=== PATIENT | male | born 1935 | race Caucasian/White ===

== ENCOUNTER 2018-10-07 10:26 | Outpatient (CLI) | payer MEDICARE, OTHER ==
--- NOTE | 2018-10-07 11:06 | RAD ---
LUMBAR SPINE 3 VIEWS: HISTORY: Low back pain. FINDINGS: There are 5 lumbar-type vertebrae. Pedicles are intact. Compression of the T12 vertebral body results in loss of height by approximately 30%. Minimal retrop ulsion of the superior end plate. Disk space narrowing at the L3-4 level with gas-disk phenomenon. Minimal degenerative spondylolisthe sis at the L4-5 level. Osteophytosis throughout the vertebral bodies and facets. Calcification over the arterial structures. IMPRESSION: 1. Partial compression T12 vertebral body, age indeterminate. 2. Degenerative changes lumbar spine. 3. Atherosclerosis. POS: MANDO
== END 2018-10-07 10:27 | disposition home or self-care (01) ==
LOC: RAD-FRANK 10:26
PROVIDERS: ATTEND Nurse Practitioner Family
DX: M54.5 Low back pain (principal); M47.816 Spondylosis without myelopathy or radiculopathy, lumbar region; I70.0 Atherosclerosis of aorta
CPT/HCPCS: 72100

== ENCOUNTER 2019-05-23 12:16 | Inpatient (IN) | payer MEDICARE, OTHER ==
[2019-05-23] MEDS ORDERED: Diltiazem 125 MG/25 ML ONE ×2 (13:04→13:06)
--- NOTE | 2019-05-23 13:04 | RAD ---
EXAM: CHEST ONE VIEW HISTORY: Multiple falls, UTI symptoms. COMPARISON: 06/26/2010 FINDINGS: Cardiac silhouette is magnified by projection. The pulmonary vasculature is within normal limits. The lungs are clear. Chest is overall stable compared to prior study. IMPRESSION: No acute cardiopulmonary process.
[2019-05-23 13:23] LABS: #Eosinphils 0.1 thou/uL (0.0-0.7); #Lymphocytes 1.2 thou/uL (1.20-3.40); #Neutrophils 8.9 thou/uL (1.40-6.50); %Basophils 0.1 % (0.0-1.0); %Eosinophils 0.5 % (0.0-10.0); %Lymphocytes 10.5 % (21.0-51.0); %Monocytes 8.6 % (0.0-10.0); %Neutrophils 80.4 % (42.0-75.0); Hemoglobin 16.1 g/dL (14.0-18.0); Mean Corpuscular HGB CONC 34.8 g/dL (32.0-36.0); Mean Corpuscular Hemoglobin 32.8 pg (27.0-31.0); Mean Corpuscular Volume 94.3 fL (78.0-98.0); Mean Platelet Volume 7.6 fL (7.4-10.4); Platelet Count 246 thou/uL (130-400); RBC Distribution Width 11.8 % (11.5-14.5)
[2019-05-23 13:54] LABS: ALT (SGPT) 17 U/L (8-55); AST (SGOT) 41 U/L (5-34); Albumin 4.1 g/dL (3.4-4.8); Alkaline Phosphatase 61 U/L (40-150); Anion Gap 14 mmol/L (10-20); BUN (Urea Nitrogen) 10 mg/dL (8.4-25.7); Bilirubin, Total 1.7 mg/dL (0.2-1.2); CK (CPK) 515 U/L (30-200); Calc. Creatinine Clearance 0 mL/min (70-130); Calcium 9.8 mg/dL (7.8-10.44); Carbon Dioxide 22 mmol/L (23-31); Chloride 90 mmol/L (98-107); Estimated GFR-MDRD Greater than 90; Globulin 2.5 g/dL (2.4-3.5); Glucose 100 mg/dL (83-110); Protein, Total 6.6 g/dL (5.8-8.1); Sodium 122 mmol/L (136-145)
--- NOTE | 2019-05-23 14:31 | CT ---
CT OF BRAIN PERFORMED WITHOUT CONTRAST ENHANCEMENT: 05/23/19 HISTORY: Head injury. Multiple falls. COMPARISON: A 11/02/08 study. There is mild ventricular and sulcal prominence. There is decreased attenuation of the periventricula r white matter. There is no signs of intracerebral hemorrhage or extra-axial fluid collections. Mast oid air cells are clear. There is some mucosal change within the left maxillary sinus. IMPRESSION: No acute intracranial abnormalities. POS: OFF
[2019-05-23 14:59] LABS: Bilirubin Negative (Negative); Blood, Urine Negative (Negative); Clarity Clear (Clear); Glucose, Urine (Dipstick) Normal (Negative); Leukocyte Negative Leu/uL (Negative); Nitrite Negative (Negative); Protein, Urine (Dipstick) Negative (Neg-Trace); Urobilinogen Normal mg/dL (Less than 2)
--- NOTE | 2019-05-23 15:44 | HP ---
PRIMARY CARE PHYSICIAN: Dorothy Loya, family nurse practitioner. REASON FOR ADMISSION: Hyponatremia, frequent fall. HISTORY OF PRESENT ILLNESS: An 83-year-old male who has underlying history of atrial fibrillation. The patient is following Dr. Apollo Cooper. For last 3 to 4 days, the patient had frequent fall. Paramedics have to go his home for help. Couple of times, the patient refused to go to emergency room, but today, Paramedics brought him to emergency room for evaluation. The patient reports that his left knee giving away whenever he tries to walk and he fell. He did not have any injury. He was not feeling any palpitation, chest pain, or shortness of breath. The patient also reports that he has difficulty voiding for last 1 week. He also noticed that his scrotum was erythematous, but he denies any tenderness, fever, or chills. He denies any lower extremity edema, orthopnea, or PND. For last couple of days, the patient was using his 's walker for ambulation. The patient also reports that he saw his primary care physician 2 days ago and his blood pressure medication was adjusted. The patient has generalized weakness. He denies any constipation, diarrhea, melena, or hematochezia. REVIEW OF SYSTEMS: CONSTITUTIONAL: Negative for weight loss or gain, ability to conduct usual activities. SKIN: Negative for rash, itching. EYES: Negative for double vision, pain. ENT/MOUTH: Negative for nose bleeding, neck stiffness, pain, tenderness. CARDIOVASCULAR: Negative for palpitations, dyspnea on exertion, orthopnea. RESPIRATORY: Negative for shortness of breath, wheezing, cough, hemoptysis, fever or night sweats. GASTROINTESTINAL: Negative for poor appetite, abdominal pain, heartburn, nausea , vomiting, constipation, or diarrhea. GENITOURINARY: Negative for urgency, frequency, dysuria, nocturia. MUSCULOSKELETAL: Negative for pain, swelling. NEUROLOGIC/PSYCHIATRIC: Negative for anxiety, depression. ALLERGY/IMMUNOLOGIC: Negative for skin rash, bleeding tendency. Please see my HPI for pertinent positives and negatives. All other review of systems reviewed and negative except as mentioned in HPI. PAST MEDICAL HISTORY: Atrial fibrillation and hypertension. PAST SURGICAL HISTORY: The patient is not able to provide any details of surgical history. PAST PSYCHIATRIC HISTORY: Reviewed and negative. SOCIAL HISTORY: The patient is . Lives at home with his . No history of tobacco, alcohol, or illicit drug abuse. FAMILY HISTORY: No strong family history of premature coronary artery disease, stroke, or cancer. ALLERGIES: NO KNOWN DRUG ALLERGIES. CURRENT HOME MEDICATIONS: The patient did not bring his home medication with him at this point and he is not able to tell me the name of medication, so unable to review at this point. EMERGENCY ROOM COURSE: The patient was given 10 mg Cardizem bolus for atrial fibrillation with RVR and subsequently, his heart rate was under control. He was also given IV fluid. PHYSICAL EXAMINATION: VITAL SIGNS: On arrival, blood pressure 167/114, pulse 105 and irregular, respiratory rate 17, temperature 98.6, saturations 95% on room air. Weight 90.27 kg. GENERAL: The patient is currently alert and awake, no obvious acute distress. HEENT: Head; normocephalic, atraumatic. Eyes; pupils round, reactive to light. Extraocular muscle intact. ENT; oropharynx within normal limit. Moist mucous membranes. No oral lesion. No pharyngeal erythema. No exudate. NECK: Supple. No JVD. No thyromegaly. No carotid bruit. LUNGS: Clear to auscultation without any rhonchi or rales. CARDIAC: S1 and S2. Irregularly irregular. No murmur elicited. No gallop. No rub. ABDOMEN: Soft and benign without any tenderness. EXTREMITIES: Chronic skin changes noted on both lower extremity, no edema. Good distal pulsation. SKIN: No skin rash other than chronic skin changes over both lower extremities. NEUROLOGIC: Grossly nonfocal examination. SIGNIFICANT LABORATORY DATA: CBC; WBC 11.0, hemoglobin 16.1, and platelet 246. BMP; sodium 122, potassium 4.0, chloride 90, carbon dioxide 22, BUN 10, creatinine 0.64, glucose 100, calcium 9.8. LFT; AST 41, ALT 17, alkaline phosphatase 61, albumin 4.1. CK 515. Troponin I 0.025. BNP 303. EKG showing atrial fibrillation with RVR. CT brain negative for any acute intracranial process. Chest x-ray normal without any acute cardiopulmonary process. ASSESSMENT AND PLAN: 1. Hyponatremia. We will check urinalysis, urine sodium, creatinine, cortisol, TSH, osmolality of urine and serum for further evaluation. 2. Frequent fall. The patient will need PT, OT, and case technician consult for placement evaluation. 3. Rhabdomyolysis related with frequent fall. We will repeat CK level tomorrow. 4. Elevated BNP, suspecting diastolic heart failure. We will check echocardiography. 5. Atrial fibrillation with rapid ventricular response, currently controlled after Cardizem bolus. We will continue with Cardizem p.o. and we will verify his home medication and resume selected medication. The patient will follow up with Dr. Apollo Cooper after discharge. We will obtain echocardiography. 6. Hypertension. Once we verify the patient's blood pressure medication, we will resume while in hospital. If needed, we will add lisinopril and metoprolol. 7. Deep venous thrombosis prophylaxis, Lovenox 40 mg subcu daily. GI prophylaxis, Pepcid 20 mg p.o. b.i.d. CODE STATUS: The patient is full code. The patient's is surrogate decision maker. DISPOSITION PLAN: Based on clinical course, we are expecting the patient's stay in the hospital more than 2 midnights. Plan of care discussed with the patient and his in the emergency room. Job ID: [id number] [email or web address]
[2019-05-23] MEDS ORDERED: Ondansetron ODT 4 MG TAB PO PRN (18:58)
[2019-05-23] MEDS ORDERED: HYDROcodone/Acetaminophen 5/325 mg Tablet PO PRN (18:58)
[2019-05-23] MEDS ORDERED: Ondansetron PF 4 MG/2 ML Vial IVP PRN (18:58)
[2019-05-23] MEDS ORDERED: Sodium Chloride 0.65% Nasal 44 ML BOT EA NARE PRN (18:58)
[2019-05-23] MEDS ORDERED: Artificial Tears 18 DROP/0.9 ML EA EYE PRN (18:58)
[2019-05-23] MEDS ORDERED: Loratadine 10 MG TAB PO PRN (18:58)
[2019-05-23] MEDS ORDERED: Senokot S 8.6-50 MG TAB PO PRN (18:58)
[2019-05-23] MEDS ORDERED: Bisacodyl 10 MG SUPP PR PRN (18:58)
[2019-05-23] MEDS ORDERED: Cepastat Lozenges 1 LOZ PO PRN (18:58)
[2019-05-23] MEDS ORDERED: Acetaminophen 325 MG TAB PO PRN (18:58)
[2019-05-23] MEDS ORDERED: Calcium Carbonate 500 MG ChewTAB PO PRN (18:58)
[2019-05-23] MEDS ORDERED: Diabetic Tussin 200 MG/10 ML UDCUP PO PRN (18:58)
[2019-05-23] MEDS ORDERED: Loperamide HCl 2 MG CAP PO PRN (18:58)
[2019-05-23] MEDS ORDERED: hydrALAZINE 20 MG/ML VIAL SLOW IVP PRN (18:58)
[2019-05-23] MEDS ORDERED: Dextrose 5 % And 0.9 % NaCl 1,000 ML IV SCH (19:00)
[2019-05-23] MEDS: Famotidine 20 MG TAB PO SCH (20:53)
[2019-05-23 21:07] LABS: Bacteria/HPF None Seen HPF (None Seen); Bilirubin Negative (Negative); Blood, Urine Negative (Negative); Clarity Clear (Clear); Glucose, Urine (Dipstick) Normal (Negative); Leukocyte Negative Leu/uL (Negative); Nitrite Negative (Negative); Protein, Urine (Dipstick) Negative (Neg-Trace); RBC/HPF 0-3 HPF (0-3); Squamous Epithelial None Seen HPF (0-3); Urobilinogen Normal mg/dL (Less than 2); WBC/HPF 0-3 HPF (0-3)
[2019-05-23 21:47] LABS: Creatinine, Urine 52.69 mg/dL (63-166)
[2019-05-23 22:58] VITALS: BMI 26.0
[2019-05-24 05:29] LABS: #Eosinphils 0.1 thou/uL (0.0-0.7); #Lymphocytes 1.5 thou/uL (1.20-3.40); #Monocytes 1.1 thou/uL (0.11-0.59); %Basophils 0.2 % (0.0-1.0); %Eosinophils 1.2 % (0.0-10.0); %Lymphocytes 14.2 % (21.0-51.0); %Monocytes 10.3 % (0.0-10.0); %Neutrophils 74.1 % (42.0-75.0); Mean Corpuscular Hemoglobin 32.1 pg (27.0-31.0); Mean Corpuscular Volume 94.2 fL (78.0-98.0); Mean Platelet Volume 7.7 fL (7.4-10.4); Platelet Count 237 thou/uL (130-400); Red Blood Cell (RBC) Count 4.98 mill/uL (4.70-6.10); White Blood Cell (WBC) Count 10.8 thou/uL (4.8-10.8)
[2019-05-24 06:02] LABS: Anion Gap 13 mmol/L (10-20); BUN (Urea Nitrogen) 6 mg/dL (8.4-25.7); CK (CPK) 428 U/L (30-200); Calc. Creatinine Clearance 117 mL/min (70-130); Calcium 9.2 mg/dL (7.8-10.44); Carbon Dioxide 22 mmol/L (23-31); Chloride 94 mmol/L (98-107); Estimated GFR-MDRD Greater than 90; Glucose 116 mg/dL (83-110); Potassium 3.3 mmol/L (3.5-5.1); Sodium 126 mmol/L (136-145)
[2019-05-24] MEDS ORDERED: Warfarin Sodium 2.5 MG TAB PO SCH ×2 (08:00→18:30)
[2019-05-24 08:50] LABS: INR-International Normal Ratio 2.8; Prothrombin Time 29.5 SEC (12.0-14.7)
[2019-05-24] MEDS ORDERED: Aspirin 325 MG TAB PO SCH (09:00)
[2019-05-24] MEDS ORDERED: Enoxaparin Sodium 40 MG/0.4 ML SYRINGE SC SCH (09:00)
[2019-05-24] MEDS: Famotidine 20 MG TAB PO SCH ×2 (09:55→21:32)
[2019-05-24] MEDS: Lisinopril 10 MG TAB PO SCH ×2 (09:55→21:32)
[2019-05-24] MEDS: Digoxin 0.125 MG TAB PO SCH (09:56)
[2019-05-24] MEDS: Carvedilol 25 MG TAB PO SCH ×2 (09:56→21:32)
--- NOTE | 2019-05-24 11:26 | PDOC.HOSPP ---
- Subjective Encounter Date: 05/24/19 Encounter Time: 07:30 Subjective: Patient seen and examined. No new complaints. No overnight events - Objective Vital Signs & Weight: Vital Signs (12 hours) Temp Pulse Resp BP Pulse Ox 05/24/19 09:56 100 05/24/19 07:30 93 L 05/24/19 07:28 97.9 F 100 18 161/95 H 94 L 05/24/19 04:00 97.4 F L 101 H 18 137/81 96 Weight Weight 192 lb Result Diagrams: 05/24/19 05:09 05/24/19 05:09 EKG Reviewed by me: Yes ROS - Review of Systems Constitutional: denies: fever, chills, sweats, weakness, malaise, other Eyes: denies: pain, vision change, conjunctivae inflammation, eyelid inflammation, redness, other ENT: denies: ear pain, ear discharge, nose pain, nose discharge, nose congestion , mouth pain, mouth swelling, throat pain, throat swelling, other Respiratory: denies: cough, dry, shortness of breath, hemoptysis, SOB with excertion, pleuritic pain, sputum, wheezing, other Cardiovascular: denies: chest pain, palpitations, orthopnea, paroxysmal noc. dyspnea, edema, light headedness, other Gastrointestinal: denies: nausea, vomitting, abdominal pain, diarrhea, constipation, melena, hematochezia, other Genitourinary: denies: dysuria, frequency, incontinence, hematuria, retention, other Musculoskeletal: denies: neck pain, shoulder pain, arm pain, back pain, hand pain, leg pain, foot pain, other Skin: reports: rash (scotral rash, mild itching). denies: lesions, le, bruising, other - Medication Medications: Active Medications Generic Name Dose Route Start Last Admin Trade Name Freq PRN Reason Stop Dose Admin Carvedilol 25 mg 05/24/19 09:00 05/24/19 09:56 Coreg PO 25 mg BID OZIEL Administration Digoxin 0.125 mg 05/24/19 09:00 05/24/19 09:56 Lanoxin PO 0.125 mg DAILY OZIEL Administration Famotidine 20 mg 05/23/19 21:00 05/24/19 09:55 Pepcid PO 20 mg BID OZIEL Administration Lisinopril 10 mg 05/24/19 09:00 05/24/19 09:55 Zestril PO 10 mg BID OZIEL Administration - Exam NAD, awake alert Eye: PERRL, anicteric sclera ENT: normocephalic atraumatic, no oropharyngeal lesions Neck: supple, symmetric, no JVD, no thyromegaly Heart: no murmur, no gallops, irregular Respiratory: CTAB, no wheezes, no rales, no ronchi Gastrointestinal: soft, non-tender, non-distended, normal bowel sounds Extremities: no cyanosis, no clubbing, no edema Skin: normal turgor Neurological: CN's grossly intact, normal sensation to touch, no focal deficits Musculoskeletal: normal tone, normal strength Psychiatric: normal affect, normal behavior, oriented to place Hosp A/P (1) Hyponatremia Code(s): E87.1 - HYPO-OSMOLALITY AND HYPONATREMIA Status: Acute Plan: due to siadh (2) Hypokalemia Code(s): E87.6 - HYPOKALEMIA Status: Acute (3) Frequent falls Code(s): R29.6 - REPEATED FALLS Status: Acute (4) Rhabdomyolysis Code(s): M62.82 - RHABDOMYOLYSIS Status: Acute Plan: due to falls (5) Chronic anticoagulation Code(s): Z79.01 - 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
[2019-05-24 15:57] LABS: Hemoglobin 15.7 g/dL (14.0-18.0); Platelet Count 245 thou/uL (130-400)
[2019-05-24] MEDS: traZODone HCl 150 MG TAB PO SCH (21:32)
[2019-05-24] MEDS: Nystatin Powder 15 GM BOT TOP SCH (21:33)
[2019-05-25 05:34] LABS: INR-International Normal Ratio 2.8; Prothrombin Time 29.3 SEC (12.0-14.7)
[2019-05-25 06:06] LABS: BUN (Urea Nitrogen) 9 mg/dL (8.4-25.7); Calc. Creatinine Clearance 111 mL/min (70-130); Carbon Dioxide 18 mmol/L (23-31); Estimated GFR-MDRD Greater than 90; Glucose 90 mg/dL (83-110)
[2019-05-25 06:26] LABS: Calcium 7.5 mg/dL (7.8-10.44); Chloride 93 mmol/L (98-107); Potassium 3.7 mmol/L (3.5-5.1); Sodium 121 mmol/L (136-145)
[2019-05-25 06:46] LABS: Anion Gap 14 mmol/L (10-20)
[2019-05-25] MEDS: Digoxin 0.125 MG TAB PO SCH (09:27)
[2019-05-25] MEDS: Aspirin 81 mg Enteric Coated Tablet PO SCH (09:28)
[2019-05-25] MEDS: Carvedilol 25 MG TAB PO SCH ×2 (09:28→21:04)
[2019-05-25] MEDS: Famotidine 20 MG TAB PO SCH ×2 (09:29→21:05)
[2019-05-25] MEDS: Lisinopril 10 MG TAB PO SCH ×2 (09:32→21:05)
[2019-05-25] MEDS: Nystatin Powder 15 GM BOT TOP SCH ×2 (09:32→21:06)
--- NOTE | 2019-05-25 17:33 | PDOC.HOSPP ---
- Subjective Encounter Date: 05/25/19 Encounter Time: 10:30 Subjective: pt up in bed no complains - Objective Vital Signs & Weight: Vital Signs (12 hours) Temp Pulse Pulse Pulse Resp BP BP 05/25/19 16:00 97.7 F 105 H 18 05/25/19 12:00 98.2 F 90 18 05/25/19 10:41 96 87 149/76 H 05/25/19 09:32 169/86 H 05/25/19 09:27 67 05/25/19 08:00 98.8 F 81 16 BP BP Pulse Ox 05/25/19 16:00 163/95 H 98 05/25/19 12:00 129/74 96 05/25/19 10:41 152/73 H 05/25/19 09:32 05/25/19 09:27 05/25/19 08:00 169/86 H 96 Weight Weight 192 lb Result Diagrams: 05/24/19 15:50 05/25/19 05:03 ROS - Review of Systems Cardiovascular: denies: chest pain, palpitations, orthopnea, paroxysmal noc. dyspnea, edema, light headedness, other Genitourinary: denies: dysuria, frequency, incontinence, hematuria, retention, other - Medication Medications: Active Medications Generic Name Dose Route Start Last Admin Trade Name Chaunceyq PRN Reason Stop Dose Admin Aspirin 81 mg 05/25/19 09:00 05/25/19 09:28 Ecotrin PO 81 mg DAILY OZIEL Administration Carvedilol 25 mg 05/24/19 09:00 05/25/19 09:28 Coreg PO 25 mg BID OZIEL Administration Digoxin 0.125 mg 05/24/19 09:00 05/25/19 09:27 Lanoxin PO 0.125 mg DAILY OZIEL Administration Famotidine 20 mg 05/23/19 21:00 05/25/19 09:29 Pepcid PO 20 mg BID OZIEL Administration Lisinopril 10 mg 05/24/19 09:00 05/25/19 09:32 Zestril PO 10 mg BID OZIEL Administration Nystatin 0 gm 05/24/19 21:00 05/25/19 09:32 Mycostatin Powder TOP 1 applic BID OZIEL Administration Trazodone HCl 75 mg 05/24/19 21:00 05/24/19 21:32 Desyrel PO 75 mg HS OZIEL Administration - Exam Neck: negative: supple, symmetric, no JVD, no thyromegaly, no lymphadenopathy, no carotid bruit, JVD Heart: negative: RRR, no murmur, no gallops, no rubs, normal peripheral pulses, irregular, diminshed peripheral pulses, murmur present, II/IV, III/IV Respiratory: negative: CTAB, no wheezes, no rales, no ronchi, normal chest expansion, no tachypnea, normal percussion, rales, rhonchi, tachypneic, wheezes Hosp A/P (1) Frequent falls Code(s): R29.6 - REPEATED FALLS Status: Acute (2) Hyponatremia Code(s): E87.1 - HYPO-OSMOLALITY AND HYPONATREMIA Status: Acute (3) Rhabdomyolysis Code(s): M62.82 - RHABDOMYOLYSIS Status: Acute (4) Chronic atrial fibrillation with RVR Code(s): I48.2 - CHRONIC ATRIAL FIBRILLATION Status: Chronic - Plan pt's heart rate on admission was 120's afib. He is now having pauses. will get cardio to see him. He has been falling at home. He is on AC for afib. 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
[2019-05-25] MEDS: traZODone HCl 150 MG TAB PO SCH (21:07)
[2019-05-26] MEDS ORDERED: Sodium Chloride 0.9% 10 ML ONE (07:47)
[2019-05-26 09:04] LABS: Digoxin 0.25 ng/mL (0.8-2.0)
[2019-05-26 09:06] LABS: Anion Gap 10 mmol/L (10-20); BUN (Urea Nitrogen) 9 mg/dL (8.4-25.7); Calc. Creatinine Clearance 97 mL/min (70-130); Calcium 9.2 mg/dL (7.8-10.44); Carbon Dioxide 29 mmol/L (23-31); Chloride 93 mmol/L (98-107); Estimated GFR-MDRD Greater than 90; Glucose 84 mg/dL (83-110); Potassium 3.7 mmol/L (3.5-5.1); Sodium 128 mmol/L (136-145)
[2019-05-26] MEDS: Lisinopril 10 MG TAB PO SCH ×2 (09:28→19:44)
[2019-05-26] MEDS: Aspirin 81 mg Enteric Coated Tablet PO SCH (09:28)
[2019-05-26] MEDS: Digoxin 0.125 MG TAB PO SCH (09:28)
[2019-05-26] MEDS: Famotidine 20 MG TAB PO SCH ×2 (09:28→19:51)
[2019-05-26] MEDS: Carvedilol 25 MG TAB PO SCH ×2 (09:28→19:48)
[2019-05-26] MEDS: Nystatin Powder 15 GM BOT TOP SCH ×2 (09:31→22:37)
[2019-05-26 16:15] LABS: Hemoglobin 15.1 g/dL (14.0-18.0); Platelet Count 234 thou/uL (130-400)
[2019-05-26] MEDS ORDERED: Warfarin Sodium 5 MG TAB PO SCH (17:00)
--- NOTE | 2019-05-26 18:30 | CON ---
DATE OF CONSULTATION: 05/26/2019 INDICATION FOR CONSULTATION: An 83-year-old gentleman with probable short episodes of syncope with atrial fibrillation and pauses, who asked to see him due to the regular heart rate. HISTORY OF PRESENT ILLNESS: This very unfortunate 83-year-old gentleman, who lives at home. Has had a long history of atrial fibrillation, has been followed by Dr. Apollo Cooper in [facility]. He in the last several months, started having occasional falls. He has fallen 3 times about a year ago. He did have his medications adjusted. He was taking Coreg 25 mg once a day and this was increased to twice a day, and he had complained of some lightheadedness and dizziness. He does not have any significant etiology of why he falls on each episode. He says if he was standing, then suddenly realized that he was falling, but was unable to stop himself. It does not sound as if his legs are giving way, but sounds like he may be having short episodes of pauses and having syncope or presyncopal episodes. He has not had any becca syncope that he is aware of. He may be having short episodes and then recovered his heart rate. He does have episodes since being on telemetry with heart rates in the 40s and 50s at night. He has had some episodes of pauses to 2-1/2 to 3-second pauses, but apparently was asymptomatic since he was sleeping. He has had no significant pauses during the daytime. His heart rate usually have been in the 60s and 70s with his atrial fibrillation. Since being here when he arrived, he was in atrial fibrillation with rapid ventricular response with a heart rate in the 120s. When he arrived to the emergency room, he was given IV diltiazem. The heart rate has been improved. He has been placed back on his home medications, which included the Coreg 25 mg twice a day. Also, he has been given digoxin 0.125 mg a day, and heart rate is under good control, but at times it may be too slow. Otherwise, he denies any chest pain or previous cardiac history. He said he did undergo a cardiac catheterization several years ago in [facility] by Dr. Mccabe. At which time, he was told that he only had minimal if any coronary artery disease. He has had no chest pain or shortness of breath otherwise. PAST MEDICAL HISTORY: Significant for cardiac catheterization in 1995. He has also had the history of atrial fibrillation and hypertension. SOCIAL HISTORY: He is . He lives at home. He denies any significant alcohol or tobacco abuse. FAMILY HISTORY: Noncontributory. ALLERGIES: NONE. MEDICATIONS: From a cardiac standpoint include, 1. Coumadin. 2. Aspirin. 3. Coreg 25 mg b.i.d. 4. Digoxin 0.125 mg a day. 5. Lisinopril 10 mg b.i.d. REVIEW OF SYSTEMS: A 12-point review of systems unremarkable except he does have some discoloration in the lower extremities and has been complaining of some right lower extremity claudication from the knee down to the foot with some weakness and fatigue in the legs. Otherwise, 12-point review of systems unremarkable for what was noted in the history of present illness. PHYSICAL EXAMINATION: GENERAL: An elderly, very pleasant gentleman, who is awake and alert. VITAL SIGNS: Blood pressure is 114/65, increased up to 136/67, heart rate is in the 50s to 60s and shows atrial fibrillation, respiratory rate 16. He is afebrile. HEENT: Head to be normocephalic and atraumatic. Carotid pulses are present. There were no significant bruits noted. CHEST: Clear to auscultation without rales, rhonchi, or wheezing. CARDIOVASCULAR: An irregularly irregular rhythm. He has a soft systolic murmur at the lower sternal border and also at the apex. ABDOMEN: Soft and nontender. Positive bowel sounds are present. EXTREMITIES: No clubbing or cyanosis. He does have some discoloration of lower extremities. I could not palpate pedal pulses on the right lower extremity, but popliteal pulses are present. NEUROLOGIC: The patient appears to be fully intact. SKIN: Warm and dry. LABORATORY DATA: Hemoglobin of 15.7, WBC of 10.3, platelet count of 245,000. Sodium is low at 128, BUN is 9 with a creatinine 0.72, potassium is 3.7. His BNP is 303. Cardiac enzymes are negative. His INR is 2.8. Digoxin level 0.25. DIAGNOSTIC DATA: EKG shows atrial fibrillation with well-controlled response, and as noted above, did have some pauses while sleeping up to 3 seconds. Otherwise, no ischemic changes were noted. His echocardiogram showed an ejection fraction of 45% to 50% with moderate mitral and aortic valve regurgitation and chronic atrial fibrillation. IMPRESSION: 1. An elderly gentleman most likely with short episodes of syncope associated with bradycardia most likely, but these have not been documented during the daytime. It could be hypotension. At this time, I will decrease the Coreg down to 12.5 mg b.i.d. We will continue to observe him. He has had no further episodes within the next 24 to 48 hours. He may be a candidate to have an implantable loop recorder inserted just to continue to monitor him. Otherwise, if he has any significant pauses or any other abnormalities while here, he may need to undergo pacemaker insertion. 2. Atrial fibrillation. The rate is under good control. He is on Coumadin as necessary for the patient to be on Coumadin and aspirin. I will discontinue the aspirin. His INR is sufficient at 2.8, and also we will control the heart rate with digoxin also at 0.25 and hope for the Coreg at 12.5 mg from his previous 25 b.i.d. will be enough to control the heart rate also. He has been complaining of some dizziness and lightheaded since the dose was increased recently or within the last year supposedly. 3. Hyponatremia. This will be dealt with by the primary care service. This may be due to uncertain etiology. This is being evaluated at this time. 4. History of rhabdomyolysis after he has had frequent falls. 5. History of hypertension. This is under very good control at this time. We will continue to follow the patient. 6. Peripheral vascular disease. He has decreased pulses on the right foot and may need further evaluation by Doppler, but at this time, it is not an urgent problem for this gentleman. We will continue to monitor him for his arrhythmias. Job ID: [id number]
[2019-05-26] MEDS: traZODone HCl 150 MG TAB PO SCH (19:51)
[2019-05-27 05:42] LABS: Prothrombin Time 22.4 SEC (12.0-14.7)
--- NOTE | 2019-05-27 06:48 | PDOC.HOSPP ---
- Subjective Encounter Date: 05/26/19 Encounter Time: 10:15 Subjective: pt up in bed no complains - Objective Vital Signs & Weight: Vital Signs (12 hours) Temp Pulse Resp BP BP Pulse Ox 05/27/19 03:58 97.8 F 78 16 138/78 93 L 05/27/19 00:00 98.1 F 92 16 132/85 98 05/26/19 20:00 98.8 F 72 18 180/82 H 94 L 05/26/19 19:44 180/82 H Weight Weight 188 lb 3 oz I&O: 05/25/19 05/26/19 05/27/19 06:59 06:59 06:59 Intake Total 2400 970 Output Total 3975 1150 Balance -1575 -180 Result Diagrams: 05/26/19 16:07 05/27/19 07:19 ROS - Review of Systems Cardiovascular: denies: chest pain, palpitations, orthopnea, paroxysmal noc. dyspnea, edema, light headedness, other Gastrointestinal: denies: nausea, vomitting, abdominal pain, diarrhea, constipation, melena, hematochezia, other Genitourinary: denies: dysuria, frequency, incontinence, hematuria, retention, other - Medication Medications: Active Medications Generic Name Dose Route Start Last Admin Trade Name Freq PRN Reason Stop Dose Admin Carvedilol 12.5 mg 05/26/19 21:00 05/26/19 19:48 Coreg PO 12.5 mg BID OZIEL Administration Digoxin 0.125 mg 05/24/19 09:00 05/26/19 09:28 Lanoxin PO 0.125 mg DAILY OZIEL Administration Famotidine 20 mg 05/23/19 21:00 05/26/19 19:51 Pepcid PO 20 mg BID OZIEL Administration Lisinopril 10 mg 05/24/19 09:00 05/26/19 19:44 Zestril PO 10 mg BID OZIEL Administration Nystatin 0 gm 05/24/19 21:00 05/26/19 22:37 Mycostatin Powder TOP 1 applic BID OZIEL Administration Trazodone HCl 75 mg 05/24/19 21:00 05/26/19 19:51 Desyrel PO 75 mg HS OZIEL Administration - Exam Neck: negative: supple, symmetric, no JVD, no thyromegaly, no lymphadenopathy, no carotid bruit, JVD Heart: negative: RRR, no murmur, no gallops, no rubs, normal peripheral pulses, irregular, diminshed peripheral pulses, murmur present, II/IV, III/IV Respiratory: negative: CTAB, no wheezes, no rales, no ronchi, normal chest expansion, no tachypnea, normal percussion, rales, rhonchi, tachypneic, wheezes Hosp A/P (1) Frequent falls Code(s): R29.6 - REPEATED FALLS Status: Acute (2) Hyponatremia Code(s): E87.1 - HYPO-OSMOLALITY AND HYPONATREMIA Status: Acute (3) Rhabdomyolysis Code(s): M62.82 - RHABDOMYOLYSIS Status: Acute (4) Chronic atrial fibrillation with RVR Code(s): I48.2 - CHRONIC ATRIAL FIBRILLATION Status: Chronic - Plan pt's heart rate on admission was 120's afib. He is now having pauses. will get cardio to see him. He has been falling at home. He is on AC for afib. 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 05/26 pt doing well, cardio has recommended to lower the coreg and continue dig. if he has no more episode of pauses will discharge to rehab. His na has improved.
[2019-05-27 08:10] LABS: Anion Gap 15 mmol/L (10-20); BUN (Urea Nitrogen) 11 mg/dL (8.4-25.7); Calc. Creatinine Clearance 93 mL/min (70-130); Calcium 9.5 mg/dL (7.8-10.44); Carbon Dioxide 24 mmol/L (23-31); Chloride 96 mmol/L (98-107); Estimated GFR-MDRD Greater than 90; Glucose 89 mg/dL (83-110); Potassium 3.8 mmol/L (3.5-5.1); Sodium 131 mmol/L (136-145)
[2019-05-27] MEDS ORDERED: Warfarin Sodium 2.5 MG TAB PO SCH (09:00)
[2019-05-27] MEDS: Digoxin 0.125 MG TAB PO SCH (09:13)
[2019-05-27] MEDS: Carvedilol 25 MG TAB PO SCH ×2 (09:13→20:48)
[2019-05-27] MEDS: Famotidine 20 MG TAB PO SCH ×2 (09:14→20:50)
[2019-05-27] MEDS: Lisinopril 10 MG TAB PO SCH ×2 (09:14→20:51)
[2019-05-27] MEDS: Nystatin Powder 15 GM BOT TOP SCH ×2 (09:15→20:51)
--- NOTE | 2019-05-27 12:02 | PDOC.CTH ---
Cardiology Progress Note - Subjective The pt seen and examined. No overnight events. No cardiac complaints. - Objective Vital Signs Temp Pulse Resp BP BP Pulse Ox 05/27/19 11:27 97.6 F 77 17 116/63 93 L 05/27/19 09:13 113 H 05/27/19 07:56 97.9 F 96 17 139/87 97 05/27/19 03:58 97.8 F 78 16 138/78 93 L 05/27/19 00:00 98.1 F 92 16 132/85 98 Weight 188 lb 3 oz 05/26/19 05/27/19 05/28/19 06:59 06:59 06:59 Intake Total 2400 2245 Output Total 3975 2050 Balance -1575 195 - Physical Examination General/Neuro: alert & oriented x3 Neck: no JVD present Lungs: CTA Heart: other: (irregular) Abdomen: soft Extremities: other: (No edema) - Telemetry Telemetry Rhythm: Afib - Labs Result Diagrams: 05/26/19 16:07 05/27/19 07:19 Troponin/CKMB Troponin I 0.027 ng/mL (< 0.028) 05/23/19 13:11 - Assessment/Plan 1. hx of frequent falls possible 2/2 syncopal episodes - Tele record has not shown any arrhythmias or pauses. Will d/c to rehab with 7-day EVR and the pt will f/u with Dr Cooper for further tx. 2. Chronic afib - well controlled hr; On Coreg and Coumadin 3. HTN - well controlled; 4. PVD to RLE - cont. to monitor 5. Hyponatremia - sightly improving. 6. Rhabdomyolysis MAR reviewed * Echo on 05/24/2019 with ER 45-50%, mod dilated LA, mod MR and AR, and mild TR * Will d/c to rehab with 7-day EVR and the pt will f/u with Dr Cooper for further tx. Pt. seen and eval. by me.I agree with the A/P by the DENTAL LABORATORY TECHNICIAN. A 7 day monitor has beed applied. This should monitor him in rehab. Should he have anysignificant events then a pacemaker may be indicated. If ot, then he will f/u with Dr. Cooper for possible implantable loop recorder. Chest clear. Irreg. rhythm. Review of Systems - Review of Systems Constitutional: reports: no symptoms reported EENTM: reports: no symptoms reported Respiratory: reports: no symptoms reported Cardiac (ROS): reports: no symptoms reported ABD/GI: reports: no symptoms reported : reports: no symptoms reported Musculoskeletal: reports: no symptoms reported
--- NOTE | 2019-05-27 19:41 | PDOC.HOSPP ---
- Subjective Encounter Date: 05/27/19 Encounter Time: 11:15 Subjective: pt up in bed no complains - Objective Vital Signs & Weight: Vital Signs (12 hours) Temp Pulse Pulse Pulse Resp BP BP 05/27/19 16:15 97.6 F 80 17 05/27/19 11:27 97.6 F 77 17 05/27/19 09:50 93 68 133/75 106/57 L 05/27/19 09:13 113 H 05/27/19 07:56 97.9 F 96 17 BP BP Pulse Ox 05/27/19 16:15 167/89 H 96 05/27/19 11:27 116/63 93 L 05/27/19 09:50 05/27/19 09:13 05/27/19 07:56 139/87 97 Weight Weight 188 lb 3 oz I&O: 05/26/19 05/27/19 05/28/19 06:59 06:59 06:59 Intake Total 2400 2245 600 Output Total 3975 2050 425 Balance -1575 195 175 Result Diagrams: 05/26/19 16:07 05/27/19 07:19 ROS - Review of Systems Cardiovascular: denies: chest pain, palpitations, orthopnea, paroxysmal noc. dyspnea, edema, light headedness, other Gastrointestinal: denies: nausea, vomitting, abdominal pain, diarrhea, constipation, melena, hematochezia, other - Medication Medications: Active Medications Generic Name Dose Route Start Last Admin Trade Name Freq PRN Reason Stop Dose Admin Carvedilol 12.5 mg 05/26/19 21:00 05/27/19 09:13 Coreg PO 12.5 mg BID OZIEL Administration Digoxin 0.125 mg 05/24/19 09:00 05/27/19 09:13 Lanoxin PO 0.125 mg DAILY OZIEL Administration Famotidine 20 mg 05/23/19 21:00 05/27/19 09:14 Pepcid PO 20 mg BID OZIEL Administration Lisinopril 10 mg 05/24/19 09:00 05/27/19 09:14 Zestril PO 10 mg BID OZIEL Administration Nystatin 0 gm 05/24/19 21:00 05/27/19 09:15 Mycostatin Powder TOP 1 applic BID OZIEL Administration Trazodone HCl 75 mg 05/24/19 21:00 05/26/19 19:51 Desyrel PO 75 mg HS OZIEL Administration Warfarin Sodium 2.5 mg 05/27/19 09:00 05/27/19 09:17 Coumadin PO 2.5 mg TTHSA@0900 OZIEL Administration - Exam ENT: negative: normocephalic atraumatic, no oropharyngeal lesions, moist mucosa , dry oral mucosa Neck: negative: supple, symmetric, no JVD, no thyromegaly, no lymphadenopathy, no carotid bruit, JVD Hosp A/P (1) Frequent falls Code(s): R29.6 - REPEATED FALLS Status: Acute (2) Hyponatremia Code(s): E87.1 - HYPO-OSMOLALITY AND HYPONATREMIA Status: Acute (3) Rhabdomyolysis Code(s): M62.82 - RHABDOMYOLYSIS Status: Acute (4) Chronic atrial fibrillation with RVR Code(s): I48.2 - CHRONIC ATRIAL FIBRILLATION Status: Chronic - Plan pt's heart rate on admission was 120's afib. He is now having pauses. will get cardio to see him. He has been falling at home. He is on AC for afib. 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 05/26 pt doing well, cardio has recommended to lower the coreg and continue dig. if he has no more episode of pauses will discharge to rehab. His na has improved. 05/27 pt's na has improved on fluid restriction. his bb has been reduced. will monitor. He is ok for discharge to rehab awaiting bed.
[2019-05-27] MEDS: traZODone HCl 150 MG TAB PO SCH (20:49)
--- NOTE | 2019-05-28 02:42 | DIS ---
DATE OF ADMISSION: 05/23/2019 DATE OF DISCHARGE: 05/27/2019 DISCHARGE DIAGNOSES: 1. Frequent falls. 2. Hyponatremia. 3. Rhabdo, resolved. 4. Atrial fibrillation with some 2.6 second pause. HOSPITAL COURSE: The patient is an 83-year-old male, who initially presented to the hospital on 05/23 after having significant falls. The patient was found to be hyponatremic and also was found to be mildly tachycardic. He also states that he has been kind of weak and his left leg has been giving out and that is his bad knee. The patient was admitted to the hospital. We did check urine sodium, urine osmolality and serum osmolality, and thought most likely secondary to his hyponatremia secondary to SIADH. The patient also was eating out quite a lot and drinking significant amount of water. However, at times, he would not eat very regularly per the patient. He had an echocardiogram which indicated an EF of 45% to 50%. Left atrium was moderately dilated. In the hospital, he was found to have a 2.6 second pause at which Cardiology was consulted. They changed his Coreg from 25 mg twice a day to 12.5 mg twice a day, and continued the digoxin. They also recommended an event monitor. The patient's hyponatremia now has resolved significantly. He is back on fluid restrictions. He has done really well. His sodium right now is 131. The patient will be discharged to Rehab. He will eventually be transitioned to possible assisted living since he and his live together, and his has severe dementia. MEDICATIONS: As of the followin. Warfarin alternating between 2.5 and 5 mg. 2. Digoxin 0.125 mg daily. 3. Lisinopril 10 mg b.i.d. 4. Trazodone 75 mg at bedtime. 5. Carvedilol 12.5 b.i.d. 6. Artificial Tears two drops each eyes p.r.n. PHYSICAL EXAMINATION: VITAL SIGNS: As of the following; temperature of 97.6, 77, 17, 93% on room air, 116/63. GENERAL: He is awake, alert, and oriented x3. Does not appear in any distress. CV: S1, S2 present. No murmurs, rubs, or gallops. ABDOMEN: Soft and nontender. Bowel sounds are present x2. Again, he will be discharged to inpatient rehab for strengthening. His hyponatremia has fairly improved with fluid restriction of 1200 mL daily. His heart rate has been controlled. He will need an event monitor and Cardiology is going to arrange for that. Also, his INR on discharge was 2.0. Job ID: [id number]
[2019-05-28 05:28] LABS: INR-International Normal Ratio 1.9; Prothrombin Time 21.5 SEC (12.0-14.7)
[2019-05-28] MEDS ORDERED: Warfarin Sodium 5 MG TAB PO SCH (09:00)
[2019-05-28] MEDS: Digoxin 0.125 MG TAB PO SCH (09:24)
[2019-05-28] MEDS: Lisinopril 10 MG TAB PO SCH (09:24)
[2019-05-28] MEDS: Famotidine 20 MG TAB PO SCH (09:24)
[2019-05-28] MEDS: Carvedilol 25 MG TAB PO SCH (09:24)
[2019-05-28] MEDS: Nystatin Powder 15 GM BOT TOP SCH (09:26)
[2019-05-28 10:50] LABS: Anion Gap 12 mmol/L (10-20); BUN (Urea Nitrogen) 10 mg/dL (8.4-25.7); Calc. Creatinine Clearance 98 mL/min (70-130); Calcium 9.5 mg/dL (7.8-10.44); Carbon Dioxide 27 mmol/L (23-31); Chloride 97 mmol/L (98-107); Estimated GFR-MDRD Greater than 90; Glucose 100 mg/dL (83-110); Potassium 3.6 mmol/L (3.5-5.1); Sodium 132 mmol/L (136-145)
--- NOTE | 2019-05-28 11:11 | PDOC.CTH ---
Cardiology Progress Note - Subjective The pt seen and examined. No overnight events. No cardiac complaints. - Objective Vital Signs Temp Pulse Resp BP BP Pulse Ox 05/28/19 07:39 97.6 F 85 18 140/84 96 05/28/19 03:40 97.9 F 75 14 137/85 97 05/28/19 00:00 94 127/79 Weight 184 lb 11.2 oz 05/27/19 05/28/19 05/29/19 06:59 06:59 06:59 Intake Total 2245 900 Output Total 2050 1225 Balance 195 -325 - Physical Examination General/Neuro: alert & oriented x3 Neck: no JVD present Lungs: CTA Heart: other: (irregualr) Abdomen: soft Extremities: other: (No edema) - Telemetry Telemetry Rhythm: Afib - Labs Result Diagrams: 05/26/19 16:07 05/28/19 10:13 Troponin/CKMB Troponin I 0.027 ng/mL (< 0.028) 05/23/19 13:11 - Assessment/Plan 1. hx of frequent falls possible 2/2 syncopal episodes - Tele record has not shown any arrhythmias or pauses. Will d/c to rehab with 7-day EVR and the pt will f/u with Dr Cooper for further tx. 2. Chronic afib - well controlled hr with Coreg; on Coumadin 3. HTN - well controlled; 4. PVD to RLE - cont. to monitor 5. Hyponatremia - sightly improving. 6. Rhabdomyolysis MAR reviewed * Echo on 05/24/2019 with ER 45-50%, mod dilated LA, mod MR and AR, and mild TR * Will d/c to rehab with 7-day EVR and the pt will f/u with Dr Cooper for further tx. Should he have anysignificant events then a pacemaker may be indicated. If ot, then he will f/u with Dr. Cooper for possible implantable loop recorder. Review of Systems - Review of Systems Constitutional: reports: no symptoms reported EENTM: reports: no symptoms reported Respiratory: reports: no symptoms reported Cardiac (ROS): reports: no symptoms reported ABD/GI: reports: no symptoms reported : reports: no symptoms reported Musculoskeletal: reports: no symptoms reported
[2019-05-28 12:26] VITALS: BP 143/87; TEMP 98.4
--- NOTE | 2019-05-28 21:20 | DIS ---
DATE OF ADMISSION: 05/23/2019 DATE OF DISCHARGE: 05/28/2019 DISCHARGE DIAGNOSES: As of the followin. Frequent falls. 2. Hyponatremia. 3. Rhabdo. 4. Chronic atrial fibrillation with rapid ventricular response. 5. Some sinus pauses. HOSPITAL COURSE: The patient is an 83-year-old male, who initially presented to the hospital with frequent falls. He also was found to be in atrial fibrillation with RVR. However, his heart rate was around 120. He was initially put on rate-controlling medications. He also underwent an echocardiogram. Echocardiogram indicated an EF of 40% to 45% with left atrium moderately dilated, mild tricuspid regurgitation and moderate aortic regurgitation. He also was found to be hyponatremic with his sodium being as low as 121-122. This was attributed possibly to SIADH and also possibly due to hypoosmotic hyponatremia. The patient was put on fluid restriction and his sodium improved wonderfully. His sodium on discharge was 132. The patient while in the hospital did have a sinus pause of 2.6 seconds at this time. Cardiology was consulted. Cardiology did change his medications, decreased his carvedilol from 25 mg b.i.d. to 12.5 mg b.i.d. Also, recommended an event monitor and follow up with Dr. Cooper, who is his tavern car attendant. The patient was monitored overnight. He continued to be followed by the Cardiology. No events occurred. The patient lives alone with his and they have been discussing possible assisted living in the future. HOME MEDICATIONS: His home medications will be as of the followin. Carvedilol 12.5 b.i.d. 2. Trazodone 75 mg at bedtime. 3. Lisinopril 10 mg b.i.d. 4. Digoxin 0.125 mg daily. 5. Warfarin 5 mg p.o. for few days and warfarin 2.5 on the rest of the days. I did talk extensively with the patient and he agreed to go inpatient rehab, especially the fact that he is on Coumadin and if he fell and hit his head, that will be very detrimental. The patient agreed and he was discharged to inpatient rehab. PHYSICAL EXAMINATION: VITAL SIGNS: 98.4, 85, 18, 95% on room air, 143/87. GENERAL: He is awake, alert, and oriented x3. Does not appear in distress. CV: S1, S2 present. No murmurs, rubs, or gallops. ABDOMEN: Soft and nontender. Bowel sounds are present x2. His CT brain did not show any acute abnormalities. Job ID: [id number]
--- NOTE | 2019-05-31 14:31 | EKG ---
Test Reason : Blood Pressure : / mmHG Vent. Rate : 120 BPM Atrial Rate : 326 BPM P-R Int : 000 ms QRS Dur : 086 ms QT Int : 320 ms P-R-T Axes : 000 -20 055 degrees QTc Int : 452 ms Atrial fibrillation with rapid ventricular response with premature ventricular or aberrantly conducte d complexes Septal infarct , age undetermined Inferior infarct , age undetermined Abnormal ECG Confirmed by OLGA PRUITT ([id number]), newspaper editor managing ANTONIO PATEL ([id number]) on 05/31/2019 2:31:22 PM Referred By: Confirmed By:OLGA PRUITT
== END 2019-05-28 13:45 | DRG 644 ==
LOC: ERS 12:16 → 2NO 14:30
PROVIDERS: ADMIT Internal Medicine; ATTEND Internal Medicine
DX: E22.2 Syndrome of inappropriate secretion of antidiuretic hormone (principal); M62.82 Rhabdomyolysis; I48.2 Chronic atrial fibrillation; R29.6 Repeated falls; I10 Essential (primary) hypertension; E87.6 Hypokalemia; I08.3 Combined rheumatic disorders of mitral, aortic and tricuspid valves; I73.9 Peripheral vascular disease, unspecified; Z79.01 Long term (current) use of anticoagulants; Z79.899 Other long term (current) drug therapy; Z79.82 Long term (current) use of aspirin
CPT/HCPCS: 36415; 70450; 71045; 80048; 80053; 80162; 81003; 82533; 82550; 82570; 83735; 83880; 83930; 83935; 84300; 84443; 84484; 85014; 85018; 85025; 85049; 85610; 93005; 93306; 96361; 96374; J1650

== ENCOUNTER 2019-10-21 06:41 | Outpatient (CLI) | payer MEDICARE, OTHER ==
[2019-10-21 13:25] LABS: Hemoglobin 13.4 g/dL (14.0-18.0); Mean Corpuscular HGB CONC 34.6 g/dL (32.0-36.0); Mean Corpuscular Hemoglobin 32.9 pg (27.0-31.0); Mean Corpuscular Volume 95.3 fL (78.0-98.0); Mean Platelet Volume 7.3 fL (7.4-10.4); Platelet Count 247 thou/uL (130-400); RBC Distribution Width 12.5 % (11.5-14.5); Red Blood Cell (RBC) Count 4.06 mill/uL (4.70-6.10); White Blood Cell (WBC) Count 8.3 thou/uL (4.8-10.8)
[2019-10-21 13:33] LABS: INR-International Normal Ratio 2.2; PTT 43.4 SEC (22.9-36.1); Prothrombin Time 24.2 SEC (12.0-14.7)
[2019-10-21 13:47] LABS: Anion Gap 7 mmol/L (10-20); BUN (Urea Nitrogen) 14 mg/dL (8.4-25.7); Calc. Creatinine Clearance 0 mL/min (70-130); Calcium 10.4 mg/dL (7.8-10.44); Carbon Dioxide 32 mmol/L (23-31); Chloride 98 mmol/L (98-107); Estimated GFR-MDRD Greater than 90; Glucose 94 mg/dL (83-110); Potassium 4.1 mmol/L (3.5-5.1); Sodium 133 mmol/L (136-145)
[2019-10-21 13:50] LABS: Bilirubin Negative (Negative); Blood, Urine 1+ (Negative); Clarity Turbid (Clear); Glucose, Urine (Dipstick) Normal (Negative); Leukocyte 500 Leu/uL (Negative); Nitrite Negative (Negative); Protein, Urine (Dipstick) 30 mg/dL (Neg-Trace); Squamous Epithelial None Seen HPF (0-3); Urobilinogen Normal mg/dL (Less than 2); WBC/HPF Greater than 50 HPF (0-3)
[2019-10-21 14:03] LABS: Bacteria/HPF 1+ HPF (None Seen)
== END 2019-10-21 06:42 | disposition home or self-care (01) ==
LOC: LABBT 06:41
PROVIDERS: ATTEND Urology
DX: Z01.818 Encounter for other preprocedural examination (principal); N40.1 Benign prostatic hyperplasia with lower urinary tract symptoms
CPT/HCPCS: 80048; 81001; 85027; 85610; 85730; 87077; 87086; 87186; 93005; 93010

== ENCOUNTER 2021-02-01 14:47 | Inpatient (IN) | payer MEDICARE, OTHER ==
[~2021-02-01 14:47] MED LIST: Iopamidol-370 76% 500 ML 1 ML ONE
[2021-02-01] MEDS ORDERED: Piperacillin/Tazobactam 4.5 GM VIAL ONE (16:02)
[2021-02-01 16:55] LABS: Hemoglobin 16.4 g/dL (14.0-18.0); Mean Corpuscular HGB CONC 33.5 g/dL (32.0-36.0); Mean Corpuscular Hemoglobin 33.5 pg (27.0-31.0); Mean Corpuscular Volume 99.8 fL (78.0-98.0); Mean Platelet Volume 9.7 fL (7.4-10.4); Platelet Count 203 thou/uL (130-400); RBC Distribution Width 12.3 % (11.5-14.5); White Blood Cell (WBC) Count 21.6 thou/uL (4.8-10.8)
[2021-02-01 17:01] LABS: Band 15 % (5-11); Lymphocytes 8 % (21-51); MDiff Complete? YES; Monocytes 13 % (0-10); Neutrophil 54 % (42-75); Platelet Morphology Comment Appears Adequate; RBC Morphology Normal; Reactive Lymphocytes 10 % (0-10)
[2021-02-01 17:10] LABS: ALT (SGPT) 25 U/L (8-55); AST (SGOT) 33 U/L (5-34); Albumin 2.9 g/dL (3.4-4.8); Alkaline Phosphatase 78 U/L (40-110); Anion Gap 13 mmol/L (10-20); BUN (Urea Nitrogen) 42 mg/dL (8.4-25.7); Bilirubin, Total 1.3 mg/dL (0.2-1.2); Calc. Creatinine Clearance 0 mL/min (70-130); Calcium 11.8 mg/dL (7.8-10.44); Carbon Dioxide 23 mmol/L (23-31); Chloride 110 mmol/L (98-107); Glucose 105 mg/dL (83-110); Lipase Less than 4 U/L (8-78); Protein, Total 5.9 g/dL (5.8-8.1); Sodium 142 mmol/L (136-145)
[2021-02-01] MEDS ORDERED: Diltiazem 125 MG/25 ML ONE (17:12)
[2021-02-01 17:25] LABS: CKMB 2.1 ng/mL (0-6.6)
[2021-02-01] MEDS ORDERED: Fleet Enema 133 ML BOT PR SCH ×2 (20:00→22:30)
[2021-02-01] MEDS ORDERED: VANCOMYCIN 1.25 GM/250 ML BAG 1.25 GM in Premix Bag 1 BAG IVPB SCH (20:00)
[2021-02-01] MEDS ORDERED: Sodium Chloride 0.9% 500 ML IV SCH (20:00)
[2021-02-01] MEDS ORDERED: Diltiazem 125 MG in Sodium Chloride 0.9% 100 ML IVPB SCH (20:00)
[2021-02-01] MEDS ORDERED: Cefepime 2 GM in Sodium Chloride 0.9% 100 ML IVPB SCH (21:00)
[2021-02-01 21:11] LABS: INR-International Normal Ratio 2.1; PTT 35.5 sec (22.9-36.1); Prothrombin Time 23.7 sec (12.0-14.7)
[2021-02-01 21:24] LABS: Digoxin Less than 0.15 ng/mL (0.8-2.0); Troponin I 0.068 ng/mL (< 0.028)
[2021-02-01] MEDS: Cefepime 2 GM in Sodium Chloride 0.9% 100 ML IVPB SCH (22:57)
[2021-02-01 23:00] LABS: Lactic Acid 2.3 mmol/L (0.5-2.2)
[2021-02-01] MEDS: Famotidine 20 MG TAB PO SCH ×2 (23:00→23:13)
[2021-02-01] MEDS ORDERED: Morphine 4 MG/ML VIAL SLOW IVP SCH (23:30)
[2021-02-02 00:51] LABS: Troponin I 0.067 ng/mL (< 0.028)
[2021-02-02 01:16] LABS: Bacteria/HPF None Seen HPF (None Seen); Bilirubin Negative (Negative); Blood, Urine 3+ (Negative); Calcium Oxalate Crystals Rare HPF (None Seen); Clarity Clear (Clear); Glucose, Urine (Dipstick) Normal (Negative); Ketone, Urine Negative (Negative); Leukocyte Negative Leu/uL (Negative); Nitrite Negative (Negative); Protein, Urine (Dipstick) 30 mg/dL (Neg-Trace); RBC/HPF Greater than 50 HPF (0-3); Specific Gravity, Urine 1.047 (1.002-1.036); Squamous Epithelial None Seen HPF (0-3); Urobilinogen Normal mg/dL (Less than 2); WBC/HPF 0-3 HPF (0-3); pH, Urine 5.5 (5.0-9.0)
[2021-02-02 01:18] LABS: Urine Culture Reflex No No
[2021-02-02 01:28] LABS: Creatinine, Urine 138.47 mg/dL (63-166); Sodium, Urine Less than 20 mmol/L (Not Available)
[2021-02-02 04:55] LABS: Lactic Acid 2.5 mmol/L (0.5-2.2)
[2021-02-02 07:38] LABS: SARS-CoV-2 PCR by NAA Not Detected (NotDetected)
[2021-02-02] MEDS ORDERED: Electrolyte Replacement Protocol 1 EACH FS SCH (08:45)
[2021-02-02] MEDS ORDERED: Polyethylene Glycol 3350 17 GM Packet PO SCH (09:00)
[2021-02-02] MEDS ORDERED: Magnesium 2 GM/50 ML 2 GM in Premix Bag 1 BAG IVPB SCH (10:00)
[2021-02-02] MEDS: Senokot S 8.6-50 MG TAB PO SCH ×2 (10:26→21:16)
[2021-02-02] MEDS: Digoxin 0.125 MG TAB PO SCH (10:26)
[2021-02-02] MEDS: Aspirin Chewable 81 MG TAB PO SCH (10:27)
[2021-02-02] MEDS: Polyethylene Glycol 3350 17 GM Packet PO SCH ×2 (10:27→21:16)
[2021-02-02 14:12] LABS: #Eosinphils 0.1 thou/uL (0.0-0.7); #Lymphocytes 1.5 thou/uL (1.20-3.40); #Monocytes 1.4 thou/uL (0.11-0.59); #Neutrophils 12.5 thou/uL (1.40-6.50); %Eosinophils 0.5 % (0.0-10.0); %Lymphocytes 9.7 % (21.0-51.0); %Monocytes 8.8 % (0.0-10.0); Hemoglobin 14.8 g/dL (14.0-18.0); Mean Corpuscular Hemoglobin 32.8 pg (27.0-31.0); Mean Corpuscular Volume 99.4 fL (78.0-98.0); Mean Platelet Volume 9.3 fL (7.4-10.4); Platelet Count 188 thou/uL (130-400); RBC Distribution Width 12.2 % (11.5-14.5); Red Blood Cell (RBC) Count 4.51 mill/uL (4.70-6.10); White Blood Cell (WBC) Count 15.4 thou/uL (4.8-10.8)
[2021-02-02 14:30] LABS: Lactic Acid 1.5 mmol/L (0.5-2.2)
[2021-02-02 14:36] LABS: ALT (SGPT) 22 U/L (8-55); AST (SGOT) 18 U/L (5-34); Albumin 2.8 g/dL (3.4-4.8); Alkaline Phosphatase 68 U/L (40-110); Anion Gap 10 mmol/L (10-20); BUN (Urea Nitrogen) 35 mg/dL (8.4-25.7); Bilirubin, Total 1.1 mg/dL (0.2-1.2); Calc. Creatinine Clearance 62 mL/min (70-130); Calcium 11.1 mg/dL (7.8-10.44); Carbon Dioxide 24 mmol/L (23-31); Chloride 110 mmol/L (98-107); Globulin 2.5 g/dL (2.4-3.5); Glucose 95 mg/dL (83-110); Potassium 3.2 mmol/L (3.5-5.1); Protein, Total 5.3 g/dL (5.8-8.1); Sodium 141 mmol/L (136-145)
[2021-02-02] MEDS ORDERED: Potassium Phosphate 15 MMOL in Sodium Chloride 0.9% 250 ML 250 ML IVPB SCH (16:00)
[2021-02-02] MEDS ORDERED: VANCOMYCIN 1.25 GM/250 ML BAG 1.25 GM in Premix Bag 1 BAG IVPB SCH (20:00)
[2021-02-02] MEDS: Folic Acid 1 MG TAB PO SCH (21:16)
[2021-02-02] MEDS: Cyanocobalamin (Vitamin B-12) 1,000 MCG TAB PO SCH (21:16)
[2021-02-02] MEDS: Famotidine 20 MG TAB PO SCH (21:16)
[2021-02-02] MEDS: Sodium Chloride 0.9% 1,000 ML IV SCH (23:09)
[2021-02-02] MEDS: Cefepime 2 GM in Sodium Chloride 0.9% 100 ML IVPB SCH (23:09)
[2021-02-03 04:58] LABS: #Eosinphils 0.3 thou/uL (0.0-0.7); #Lymphocytes 1.6 thou/uL (1.20-3.40); #Monocytes 1.1 thou/uL (0.11-0.59); #Neutrophils 8.7 thou/uL (1.40-6.50); %Eosinophils 2.2 % (0.0-10.0); %Lymphocytes 13.7 % (21.0-51.0); %Neutrophils 75.1 % (42.0-75.0); Hemoglobin 14.4 g/dL (14.0-18.0); Mean Corpuscular HGB CONC 31.8 g/dL (32.0-36.0); Mean Corpuscular Hemoglobin 31.7 pg (27.0-31.0); Mean Corpuscular Volume 99.9 fL (78.0-98.0); Mean Platelet Volume 9.5 fL (7.4-10.4); Platelet Count 171 thou/uL (130-400); RBC Distribution Width 12.2 % (11.5-14.5); Red Blood Cell (RBC) Count 4.53 mill/uL (4.70-6.10); White Blood Cell (WBC) Count 11.6 thou/uL (4.8-10.8)
[2021-02-03 05:02] LABS: INR-International Normal Ratio 2.2; Prothrombin Time 25.2 sec (12.0-14.7)
[2021-02-03 05:24] LABS: ALT (SGPT) 20 U/L (8-55); AST (SGOT) 16 U/L (5-34); Albumin 2.7 g/dL (3.4-4.8); Alkaline Phosphatase 65 U/L (40-110); Anion Gap 11 mmol/L (10-20); BUN (Urea Nitrogen) 32 mg/dL (8.4-25.7); Bilirubin, Total 1.2 mg/dL (0.2-1.2); Calc. Creatinine Clearance 72 mL/min (70-130); Calcium 10.7 mg/dL (7.8-10.44); Carbon Dioxide 23 mmol/L (23-31); Chloride 111 mmol/L (98-107); Globulin 2.5 g/dL (2.4-3.5); Glucose 82 mg/dL (83-110); Magnesium 2.2 mg/dL (1.6-2.6); Phosphorus 2.2 mg/dL (2.3-4.7); Potassium 3.3 mmol/L (3.5-5.1); Protein, Total 5.2 g/dL (5.8-8.1); Sodium 142 mmol/L (136-145)
[2021-02-03] MEDS ORDERED: Electrolyte Replacement Protocol FS PRN (07:45)
[2021-02-03] MEDS ORDERED: Potassium Chloride 20 MEQ TAB PO SCH (07:45)
[2021-02-03] MEDS: Digoxin 0.125 MG TAB PO SCH (09:07)
[2021-02-03] MEDS: Aspirin Chewable 81 MG TAB PO SCH (09:07)
[2021-02-03] MEDS: Ergocalciferol 1.25 MG(50,000 UNITS) CAP PO SCH (09:07)
[2021-02-03] MEDS: Polyethylene Glycol 3350 17 GM Packet PO SCH ×2 (09:08→20:52)
[2021-02-03] MEDS: PHOS-NAK 1 PKT PACK PO SCH ×2 (09:12→15:50)
[2021-02-03] MEDS: Senokot S 8.6-50 MG TAB PO SCH ×2 (09:15→20:52)
[2021-02-03] MEDS: Sodium Chloride 0.9% 1,000 ML IV SCH ×2 (15:49→20:51)
[2021-02-03] MEDS: Warfarin Sodium 5 MG TAB PO SCH (17:02)
[2021-02-03 19:24] LABS: Vancomycin, Trough 8.4 ug/mL
[2021-02-03] MEDS: Vancomycin 1 GM in Premix Bag 1 BAG IVPB SCH (20:50)
[2021-02-03] MEDS: Famotidine 20 MG TAB PO SCH (20:52)
[2021-02-03] MEDS: Cyanocobalamin (Vitamin B-12) 1,000 MCG TAB PO SCH (20:52)
[2021-02-03] MEDS: Folic Acid 1 MG TAB PO SCH (20:52)
[2021-02-03] MEDS: Cefepime 2 GM in Sodium Chloride 0.9% 100 ML IVPB SCH (22:29)
[2021-02-04 04:50] LABS: #Eosinphils 0.4 thou/uL (0.0-0.7); #Lymphocytes 1.3 thou/uL (1.20-3.40); #Monocytes 0.9 thou/uL (0.11-0.59); #Neutrophils 8.1 thou/uL (1.40-6.50); %Basophils 0.1 % (0.0-1.0); %Eosinophils 4.1 % (0.0-10.0); %Lymphocytes 12.3 % (21.0-51.0); %Monocytes 8.2 % (0.0-10.0); %Neutrophils 75.4 % (42.0-75.0); Hemoglobin 13.9 g/dL (14.0-18.0); Mean Corpuscular HGB CONC 33.6 g/dL (32.0-36.0); Mean Corpuscular Hemoglobin 33.3 pg (27.0-31.0); Mean Corpuscular Volume 99.2 fL (78.0-98.0); Mean Platelet Volume 8.9 fL (7.4-10.4); Platelet Count 173 thou/uL (130-400); Red Blood Cell (RBC) Count 4.19 mill/uL (4.70-6.10); White Blood Cell (WBC) Count 10.8 thou/uL (4.8-10.8)
[2021-02-04 04:55] LABS: INR-International Normal Ratio 1.9; Prothrombin Time 22.3 sec (12.0-14.7)
[2021-02-04 05:17] LABS: ALT (SGPT) 19 U/L (8-55); AST (SGOT) 18 U/L (5-34); Albumin 2.6 g/dL (3.4-4.8); Alkaline Phosphatase 65 U/L (40-110); Anion Gap 8 mmol/L (10-20); BUN (Urea Nitrogen) 19 mg/dL (8.4-25.7); Bilirubin, Total 1.2 mg/dL (0.2-1.2); Calc. Creatinine Clearance 90 mL/min (70-130); Calcium 10.4 mg/dL (7.8-10.44); Carbon Dioxide 24 mmol/L (23-31); Chloride 109 mmol/L (98-107); Globulin 2.4 g/dL (2.4-3.5); Glucose 103 mg/dL (83-110); Magnesium 1.9 mg/dL (1.6-2.6); Phosphorus 1.3 mg/dL (2.3-4.7); Potassium 3.2 mmol/L (3.5-5.1); Sodium 138 mmol/L (136-145)
[2021-02-04] MEDS ORDERED: Potassium Phosphate 22 MMOL in Sodium Chloride 0.9% 250 ML 250 ML IVPB SCH (05:45)
[2021-02-04] MEDS ORDERED: Magnesium 2 GM/50 ML 2 GM in Premix Bag 1 BAG IVPB SCH (06:30)
[2021-02-04] MEDS: Senokot S 8.6-50 MG TAB PO SCH ×2 (08:30→20:11)
[2021-02-04] MEDS: Vancomycin 1 GM in Premix Bag 1 BAG IVPB SCH ×2 (08:30→20:12)
[2021-02-04] MEDS: Digoxin 0.125 MG TAB PO SCH (08:30)
[2021-02-04] MEDS: Aspirin Chewable 81 MG TAB PO SCH (08:30)
[2021-02-04] MEDS: Polyethylene Glycol 3350 17 GM Packet PO SCH ×2 (08:31→20:12)
[2021-02-04] MEDS: Warfarin Sodium 5 MG TAB PO SCH (17:11)
[2021-02-04] MEDS: Famotidine 20 MG TAB PO SCH (20:11)
[2021-02-04] MEDS: Cyanocobalamin (Vitamin B-12) 1,000 MCG TAB PO SCH (20:12)
[2021-02-04] MEDS: Folic Acid 1 MG TAB PO SCH (20:12)
[2021-02-04] MEDS: Cefepime 2 GM in Sodium Chloride 0.9% 100 ML IVPB SCH (21:19)
[2021-02-04] MEDS: Sodium Chloride 0.9% 1,000 ML IV SCH (21:20)
[2021-02-05] MEDS: Sodium Chloride 0.9% 1,000 ML IV SCH (04:22)
[2021-02-05 04:54] LABS: INR-International Normal Ratio 1.9; Prothrombin Time 22.5 sec (12.0-14.7)
[2021-02-05 04:56] LABS: #Basophils 0.1 thou/uL (0.0-0.2); #Eosinphils 0.5 thou/uL (0.0-0.7); #Lymphocytes 1.3 thou/uL (1.20-3.40); #Monocytes 0.8 thou/uL (0.11-0.59); #Neutrophils 5.8 thou/uL (1.40-6.50); %Basophils 0.7 % (0.0-1.0); %Eosinophils 5.6 % (0.0-10.0); %Lymphocytes 15.3 % (21.0-51.0); %Monocytes 9.5 % (0.0-10.0); %Neutrophils 68.8 % (42.0-75.0); Hemoglobin 13.4 g/dL (14.0-18.0); Mean Corpuscular HGB CONC 32.5 g/dL (32.0-36.0); Mean Corpuscular Hemoglobin 32.1 pg (27.0-31.0); Mean Corpuscular Volume 98.9 fL (78.0-98.0); Platelet Count 169 thou/uL (130-400); Red Blood Cell (RBC) Count 4.15 mill/uL (4.70-6.10); White Blood Cell (WBC) Count 8.5 thou/uL (4.8-10.8)
[2021-02-05] MEDS ORDERED: Potassium Phosphate 22 MMOL in Sodium Chloride 0.9% 250 ML 250 ML IVPB SCH (06:00)
[2021-02-05 06:39] LABS: ALT (SGPT) 21 U/L (8-55); AST (SGOT) 17 U/L (5-34); Albumin 2.6 g/dL (3.4-4.8); Alkaline Phosphatase 67 U/L (40-110); Anion Gap 7 mmol/L (10-20); BUN (Urea Nitrogen) 12 mg/dL (8.4-25.7); Bilirubin, Total 1.2 mg/dL (0.2-1.2); Calc. Creatinine Clearance 95 mL/min (70-130); Calcium 9.9 mg/dL (7.8-10.44); Carbon Dioxide 26 mmol/L (23-31); Chloride 107 mmol/L (98-107); Globulin 2.3 g/dL (2.4-3.5); Glucose 96 mg/dL (83-110); Magnesium 1.9 mg/dL (1.6-2.6); Phosphorus 1.7 mg/dL (2.3-4.7); Potassium 3.3 mmol/L (3.5-5.1); Protein, Total 4.9 g/dL (5.8-8.1); Sodium 137 mmol/L (136-145)
[2021-02-05] MEDS ORDERED: Magnesium 2 GM/50 ML 2 GM in Premix Bag 1 BAG IVPB SCH (07:00)
[2021-02-05 07:40] LABS: Vancomycin, Trough 12.3 ug/mL
[2021-02-05] MEDS: Senokot S 8.6-50 MG TAB PO SCH ×2 (07:55→20:53)
[2021-02-05] MEDS: Polyethylene Glycol 3350 17 GM Packet PO SCH ×2 (07:56→20:53)
[2021-02-05] MEDS: Aspirin Chewable 81 MG TAB PO SCH (07:56)
[2021-02-05] MEDS: Digoxin 0.125 MG TAB PO SCH (07:56)
[2021-02-05] MEDS: Vancomycin 1 GM in Premix Bag 1 BAG IVPB SCH (09:03)
[2021-02-05] MEDS ORDERED: Fleet Enema 133 ML BOT PR SCH (16:45)
[2021-02-05] MEDS: Warfarin Sodium 5 MG TAB PO SCH (17:47)
[2021-02-05] MEDS ORDERED: Potassium Chloride 20 MEQ TAB PO SCH (18:00)
[2021-02-05] MEDS: Cyanocobalamin (Vitamin B-12) 1,000 MCG TAB PO SCH (20:53)
[2021-02-05] MEDS: Famotidine 20 MG TAB PO SCH (20:53)
[2021-02-05] MEDS: Folic Acid 1 MG TAB PO SCH (20:53)
[2021-02-06 05:12] LABS: #Eosinphils 0.5 thou/uL (0.0-0.7); #Lymphocytes 1.7 thou/uL (1.20-3.40); #Monocytes 0.9 thou/uL (0.11-0.59); #Neutrophils 7.2 thou/uL (1.40-6.50); %Basophils 0.4 % (0.0-1.0); %Eosinophils 4.6 % (0.0-10.0); %Lymphocytes 16.7 % (21.0-51.0); %Monocytes 8.6 % (0.0-10.0); %Neutrophils 69.7 % (42.0-75.0); Hemoglobin 15.6 g/dL (14.0-18.0); Mean Corpuscular HGB CONC 32.7 g/dL (32.0-36.0); Mean Corpuscular Hemoglobin 32.2 pg (27.0-31.0); Mean Corpuscular Volume 98.5 fL (78.0-98.0); Mean Platelet Volume 8.9 fL (7.4-10.4); Platelet Count 196 thou/uL (130-400); RBC Distribution Width 12.1 % (11.5-14.5); Red Blood Cell (RBC) Count 4.85 mill/uL (4.70-6.10); White Blood Cell (WBC) Count 10.4 thou/uL (4.8-10.8)
[2021-02-06 05:16] LABS: INR-International Normal Ratio 2.3; Prothrombin Time 25.9 sec (12.0-14.7)
[2021-02-06 05:31] LABS: ALT (SGPT) 23 U/L (8-55); AST (SGOT) 18 U/L (5-34); Alkaline Phosphatase 78 U/L (40-110); Anion Gap 8 mmol/L (10-20); BUN (Urea Nitrogen) 6 mg/dL (8.4-25.7); Bilirubin, Total 1.1 mg/dL (0.2-1.2); Calc. Creatinine Clearance 99 mL/min (70-130); Carbon Dioxide 26 mmol/L (23-31); Chloride 104 mmol/L (98-107); Globulin 2.8 g/dL (2.4-3.5); Glucose 96 mg/dL (83-110); Potassium 3.9 mmol/L (3.5-5.1); Protein, Total 5.8 g/dL (5.8-8.1); Sodium 134 mmol/L (136-145)
[2021-02-06 05:35] LABS: Phosphorus 1.7 mg/dL (2.3-4.7)
[2021-02-06] MEDS ORDERED: Magnesium 2 GM/50 ML 2 GM in Premix Bag 1 BAG IVPB SCH (06:15)
[2021-02-06] MEDS: PHOS-NAK 1 PKT PACK PO SCH ×2 (08:55→12:46)
[2021-02-06] MEDS: Famotidine 20 MG TAB PO SCH ×2 (08:58→20:53)
[2021-02-06] MEDS: Aspirin Chewable 81 MG TAB PO SCH (08:58)
[2021-02-06] MEDS: Digoxin 0.125 MG TAB PO SCH (08:59)
[2021-02-06] MEDS: Polyethylene Glycol 3350 17 GM Packet PO SCH ×2 (08:59→20:53)
[2021-02-06] MEDS: Senokot S 8.6-50 MG TAB PO SCH ×2 (08:59→20:53)
[2021-02-06] MEDS ORDERED: Sodium Phosphate 30 MMOL in Sodium Chloride 0.9% 250 ML 250 ML IVPB SCH (15:00)
[2021-02-06] MEDS: Warfarin Sodium 5 MG TAB PO SCH (16:52)
[2021-02-06] MEDS: Ondansetron PF 4 MG/2 ML Vial IVP PRN (18:16)
[2021-02-06] MEDS ORDERED: Mineral Oil ENEMA PR SCH (18:45)
[2021-02-06 19:05] LABS: Lactic Acid 1.3 mmol/L (0.5-2.2)
[2021-02-06 19:10] LABS: Anion Gap 13 mmol/L (10-20); BUN (Urea Nitrogen) 8 mg/dL (8.4-25.7); Calc. Creatinine Clearance 87 mL/min (70-130); Carbon Dioxide 22 mmol/L (23-31); Chloride 103 mmol/L (98-107); Glucose 115 mg/dL (83-110); Lipase 22 U/L (8-78); Potassium 3.7 mmol/L (3.5-5.1); Sodium 134 mmol/L (136-145)
[2021-02-06 19:13] LABS: Digoxin 0.16 ng/mL (0.8-2.0)
[2021-02-06] MEDS: Cyanocobalamin (Vitamin B-12) 1,000 MCG TAB PO SCH (20:53)
[2021-02-06] MEDS: Sodium Chloride 0.9% 1,000 ML IV SCH (20:53)
[2021-02-06] MEDS: Folic Acid 1 MG TAB PO SCH (20:53)
[2021-02-07] MEDS: Sodium Chloride 0.9% 1,000 ML IV SCH ×3 (03:14→20:57)
[2021-02-07 04:41] LABS: INR-International Normal Ratio 3.4; Prothrombin Time 34.7 sec (12.0-14.7)
[2021-02-07] MEDS: Aspirin Chewable 81 MG TAB PO SCH (08:08)
[2021-02-07] MEDS: Famotidine 20 MG TAB PO SCH ×2 (08:08→20:56)
[2021-02-07] MEDS: Senokot S 8.6-50 MG TAB PO SCH ×2 (08:08→20:56)
[2021-02-07] MEDS: Polyethylene Glycol 3350 17 GM Packet PO SCH ×2 (08:09→20:56)
[2021-02-07] MEDS: Digoxin 0.125 MG TAB PO SCH (08:09)
[2021-02-07 09:05] LABS: Hemoglobin 16.9 g/dL (14.0-18.0); Mean Corpuscular HGB CONC 32.6 g/dL (32.0-36.0); Mean Corpuscular Hemoglobin 32.4 pg (27.0-31.0); Mean Corpuscular Volume 99.4 fL (78.0-98.0); Mean Platelet Volume 8.6 fL (7.4-10.4); Platelet Count 230 thou/uL (130-400); RBC Distribution Width 12.4 % (11.5-14.5); Red Blood Cell (RBC) Count 5.22 mill/uL (4.70-6.10); White Blood Cell (WBC) Count 14.3 thou/uL (4.8-10.8)
[2021-02-07 09:21] LABS: Anion Gap 9 mmol/L (10-20); BUN (Urea Nitrogen) 11 mg/dL (8.4-25.7); Calc. Creatinine Clearance 79 mL/min (70-130); Calcium 11.8 mg/dL (7.8-10.44); Carbon Dioxide 26 mmol/L (23-31); Chloride 104 mmol/L (98-107); Glucose 124 mg/dL (83-110); Magnesium 2.1 mg/dL (1.6-2.6); Potassium 4.1 mmol/L (3.5-5.1); Sodium 135 mmol/L (136-145)
[2021-02-07 09:22] LABS: Phosphorus 2.5 mg/dL (2.3-4.7)
[2021-02-07 10:01] LABS: Band 11 % (5-11); Eosinophils 1 % (0-10); Lymphocytes 8 % (21-51); MDiff Complete? YES; Monocytes 6 % (0-10); Neutrophil 74 % (42-75); Platelet Morphology Comment Appears Adequate; RBC Morphology Normal
[2021-02-07] MEDS: Erythromycin 250 MG in Sodium Chloride 0.9% 250 ML 250 ML IVPB SCH (17:05)
[2021-02-07 18:10] LABS: Calcium 11.7 mg/dL (7.8-10.44); Magnesium 2.1 mg/dL (1.6-2.6); Phosphorus 2.7 mg/dL (2.3-4.7)
[2021-02-07] MEDS: Cyanocobalamin (Vitamin B-12) 1,000 MCG TAB PO SCH (20:57)
[2021-02-07] MEDS: Folic Acid 1 MG TAB PO SCH (20:57)
[2021-02-08] MEDS: Erythromycin 250 MG in Sodium Chloride 0.9% 250 ML 250 ML IVPB SCH ×3 (00:26→16:13)
[2021-02-08 09:20] LABS: Bacteria/HPF None Seen HPF (None Seen); Bilirubin Negative (Negative); Blood, Urine 1+ (Negative); Clarity Clear (Clear); Glucose, Urine (Dipstick) Normal (Negative); Ketone, Urine 20 mg/dL (Negative); Leukocyte Negative Leu/uL (Negative); Nitrite Negative (Negative); Protein, Urine (Dipstick) 20 mg/dL (Neg-Trace); Specific Gravity, Urine 1.022 (1.002-1.036); Squamous Epithelial None Seen HPF (0-3); Urobilinogen Normal mg/dL (Less than 2); WBC/HPF 0-3 HPF (0-3)
[2021-02-08 09:23] LABS: Urine Culture Reflex No No
[2021-02-08] MEDS: Metoprolol Tartrate 5 MG/5 ML VIAL IVP SCH ×2 (09:38→09:43)
[2021-02-08] MEDS ORDERED: Amoxicillin/Potassium Clav 875 MG TAB PO SCH (10:00)
[2021-02-08 10:17] LABS: PTT 60.6 sec (22.9-36.1); Prothrombin Time 43.8 sec (12.0-14.7)
[2021-02-08 10:25] LABS: INR-International Normal Ratio 4.5
[2021-02-08 10:36] LABS: Lactic Acid 1.2 mmol/L (0.5-2.2)
[2021-02-08] MEDS: Aspirin Chewable 81 MG TAB PO SCH (10:43)
[2021-02-08] MEDS: Senokot S 8.6-50 MG TAB PO SCH ×2 (10:44→22:10)
[2021-02-08] MEDS: Famotidine 20 MG TAB PO SCH ×2 (10:44→22:09)
[2021-02-08] MEDS: Polyethylene Glycol 3350 17 GM Packet PO SCH ×2 (10:44→22:10)
[2021-02-08] MEDS: Digoxin 0.125 MG TAB PO SCH (13:10)
[2021-02-08] MEDS: Sodium Chloride 0.9% 1,000 ML IV SCH (13:11)
[2021-02-08] MEDS ORDERED: Lorazepam 2 MG/ML VIAL SLOW IVP SCH (15:45)
[2021-02-08] MEDS: Amoxicillin/Potassium Clav 875 MG TAB PO SCH (22:09)
[2021-02-08] MEDS: Cyanocobalamin (Vitamin B-12) 1,000 MCG TAB PO SCH (22:09)
[2021-02-08] MEDS: Folic Acid 1 MG TAB PO SCH (22:09)
[2021-02-09] MEDS: Erythromycin 250 MG in Sodium Chloride 0.9% 250 ML 250 ML IVPB SCH ×3 (00:09→16:47)
[2021-02-09] MEDS: Sodium Chloride 0.9% 1,000 ML IV SCH ×3 (02:25→22:45)
[2021-02-09 04:08] LABS: INR-International Normal Ratio 3.4
[2021-02-09] MEDS: Digoxin 0.125 MG TAB PO SCH (11:13)
[2021-02-09] MEDS: Aspirin Chewable 81 MG TAB PO SCH (11:13)
[2021-02-09] MEDS: Amoxicillin/Potassium Clav 875 MG TAB PO SCH ×2 (11:13→21:27)
[2021-02-09] MEDS: Senokot S 8.6-50 MG TAB PO SCH ×2 (11:14→21:27)
[2021-02-09] MEDS: Polyethylene Glycol 3350 17 GM Packet PO SCH ×2 (11:14→21:27)
[2021-02-09] MEDS: Famotidine 20 MG TAB PO SCH ×3 (11:14→21:32)
[2021-02-09] MEDS ORDERED: Fentanyl 100 MCG/2 ML VIAL ONE (13:11)
[2021-02-09] MEDS ORDERED: Midazolam HCl 2 mg/2 ml Vial ONE (13:11)
[2021-02-09] MEDS ORDERED: Iopamidol-370 76% 500 ML 1 ML ONE (15:05)
[2021-02-09 18:22] LABS: #Eosinphils 0.3 thou/uL (0.0-0.7); #Neutrophils 7.1 thou/uL (1.40-6.50); %Basophils 0.2 % (0.0-1.0); %Eosinophils 3.1 % (0.0-10.0); %Lymphocytes 10.4 % (21.0-51.0); %Monocytes 10.8 % (0.0-10.0); %Neutrophils 75.6 % (42.0-75.0); Hemoglobin 15.2 g/dL (14.0-18.0); Mean Corpuscular HGB CONC 31.6 g/dL (32.0-36.0); Mean Corpuscular Hemoglobin 31.7 pg (27.0-31.0); Platelet Count 228 thou/uL (130-400); RBC Distribution Width 12.3 % (11.5-14.5); White Blood Cell (WBC) Count 9.3 thou/uL (4.8-10.8)
[2021-02-09] MEDS ORDERED: Fleet Enema 133 ML BOT PR SCH (21:00)
[2021-02-09] MEDS: Cyanocobalamin (Vitamin B-12) 1,000 MCG TAB PO SCH ×2 (21:27→21:32)
[2021-02-09] MEDS: Folic Acid 1 MG TAB PO SCH ×2 (21:27→21:32)
[2021-02-09] MEDS: Bisacodyl 10 MG SUPP PR SCH (21:33)
[2021-02-10] MEDS: Bisacodyl 10 MG SUPP PR SCH (00:25)
[2021-02-10 04:13] LABS: Prothrombin Time 31.7 sec (12.0-14.7)
[2021-02-10 04:30] LABS: Anion Gap 12 mmol/L (10-20); BUN (Urea Nitrogen) 17 mg/dL (8.4-25.7); Calc. Creatinine Clearance 76 mL/min (70-130); Carbon Dioxide 25 mmol/L (23-31); Chloride 108 mmol/L (98-107); Glucose 64 mg/dL (83-110); Potassium 3.5 mmol/L (3.5-5.1); Sodium 141 mmol/L (136-145)
[2021-02-10 04:33] LABS: Calcium 12.2 mg/dL (7.8-10.44)
[2021-02-10] MEDS ORDERED: Furosemide 40 MG/4 ML VIAL SLOW IVP SCH (05:15)
[2021-02-10] MEDS ORDERED: Potassium Chloride 20 MEQ TAB PO SCH (06:30)
[2021-02-10] MEDS ORDERED: Metoprolol Tartrate 5 MG/5 ML VIAL IVP SCH (08:30)
[2021-02-10] MEDS: Famotidine 20 MG TAB PO SCH ×2 (09:49→22:45)
[2021-02-10] MEDS: Senokot S 8.6-50 MG TAB PO SCH ×2 (09:49→22:45)
[2021-02-10] MEDS: Polyethylene Glycol 3350 17 GM Packet PO SCH ×2 (09:49→22:47)
[2021-02-10] MEDS: Amoxicillin/Potassium Clav 875 MG TAB PO SCH ×2 (09:49→22:45)
[2021-02-10] MEDS: Aspirin Chewable 81 MG TAB PO SCH (09:49)
[2021-02-10] MEDS: Sodium Chloride 0.9% 1,000 ML IV SCH ×2 (09:50→18:03)
[2021-02-10] MEDS: Ergocalciferol 1.25 MG(50,000 UNITS) CAP PO SCH (09:56)
[2021-02-10] MEDS: Digoxin 0.5 MG/2 ML AMP SLOW IVP SCH (09:56)
[2021-02-10] MEDS ORDERED: Zoledronic Acid 4 MG in Sodium Chloride 0.9% 100 ML IVPB SCH (10:15)
[2021-02-10] MEDS: Cyanocobalamin (Vitamin B-12) 1,000 MCG TAB PO SCH (22:45)
[2021-02-10] MEDS: Folic Acid 1 MG TAB PO SCH (22:45)
[2021-02-11] MEDS: Sodium Chloride 0.9% 1,000 ML IV SCH ×2 (01:37→08:44)
[2021-02-11 05:46] LABS: INR-International Normal Ratio 3.3; Prothrombin Time 34.3 sec (12.0-14.7)
[2021-02-11] MEDS: Senokot S 8.6-50 MG TAB PO SCH ×2 (08:43→21:09)
[2021-02-11] MEDS: Aspirin Chewable 81 MG TAB PO SCH (08:43)
[2021-02-11] MEDS: Polyethylene Glycol 3350 17 GM Packet PO SCH ×2 (08:43→21:10)
[2021-02-11] MEDS: Digoxin 0.5 MG/2 ML AMP SLOW IVP SCH (08:43)
[2021-02-11] MEDS: Famotidine 20 MG TAB PO SCH ×2 (08:43→21:09)
[2021-02-11] MEDS: Amoxicillin/Potassium Clav 875 MG TAB PO SCH ×2 (08:43→21:09)
[2021-02-11 10:18] LABS: Anion Gap 12 mmol/L (10-20); BUN (Urea Nitrogen) 10 mg/dL (8.4-25.7); Calc. Creatinine Clearance 81 mL/min (70-130); Calcium 10.4 mg/dL (7.8-10.44); Carbon Dioxide 24 mmol/L (23-31); Chloride 106 mmol/L (98-107); Glucose 86 mg/dL (83-110); Potassium 3.1 mmol/L (3.5-5.1); Sodium 139 mmol/L (136-145)
[2021-02-11] MEDS ORDERED: Potassium Chloride 20 MEQ TAB PO SCH (11:00)
[2021-02-11] MEDS ORDERED: Iopamidol 370 76% 100 ML VIAL ONE (11:37)
[2021-02-11] MEDS ORDERED: Iopamidol 370 76% 50 ML VIAL FS ONE (11:37)
[2021-02-11] MEDS: Furosemide 20 MG/2 ML VIAL SLOW IVP SCH (14:20)
[2021-02-11] MEDS: Cyanocobalamin (Vitamin B-12) 1,000 MCG TAB PO SCH (21:09)
[2021-02-11] MEDS: Folic Acid 1 MG TAB PO SCH (21:09)
[2021-02-12 04:31] LABS: INR-International Normal Ratio 2.9; Prothrombin Time 31.3 sec (12.0-14.7)
[2021-02-12 06:24] LABS: Anion Gap 12 mmol/L (10-20); BUN (Urea Nitrogen) 10 mg/dL (8.4-25.7); Calc. Creatinine Clearance 75 mL/min (70-130); Carbon Dioxide 25 mmol/L (23-31); Chloride 104 mmol/L (98-107); Glucose 83 mg/dL (83-110); Potassium 3.6 mmol/L (3.5-5.1); Sodium 137 mmol/L (136-145)
[2021-02-12] MEDS: Furosemide 20 MG/2 ML VIAL SLOW IVP SCH (06:40)
[2021-02-12] MEDS: Aspirin Chewable 81 MG TAB PO SCH (09:10)
[2021-02-12] MEDS: Amoxicillin/Potassium Clav 875 MG TAB PO SCH (09:10)
[2021-02-12] MEDS: Digoxin 0.5 MG/2 ML AMP SLOW IVP SCH (09:10)
[2021-02-12] MEDS: Polyethylene Glycol 3350 17 GM Packet PO SCH ×3 (09:11→20:33)
[2021-02-12] MEDS: Famotidine 20 MG TAB PO SCH ×2 (09:11→20:32)
[2021-02-12] MEDS: Senokot S 8.6-50 MG TAB PO SCH ×3 (09:12→20:33)
[2021-02-12] MEDS ORDERED: Warfarin Sodium 3 MG TAB PO SCH (17:00)
[2021-02-12] MEDS: Cyanocobalamin (Vitamin B-12) 1,000 MCG TAB PO SCH (20:32)
[2021-02-12] MEDS: Folic Acid 1 MG TAB PO SCH (20:33)
[2021-02-13 04:45] LABS: INR-International Normal Ratio 3.4; Prothrombin Time 34.9 sec (12.0-14.7)
[2021-02-13 05:00] LABS: Anion Gap 10 mmol/L (10-20); BUN (Urea Nitrogen) 11 mg/dL (8.4-25.7); Calc. Creatinine Clearance 73 mL/min (70-130); Calcium 9.7 mg/dL (7.8-10.44); Carbon Dioxide 27 mmol/L (23-31); Chloride 104 mmol/L (98-107); Glucose 106 mg/dL (83-110); Sodium 138 mmol/L (136-145)
[2021-02-13 05:04] LABS: Potassium 2.7 mmol/L (3.5-5.1)
[2021-02-13] MEDS: Potassium Chloride 20 MEQ TAB PO SCH ×2 (08:18→11:20)
[2021-02-13] MEDS: Aspirin Chewable 81 MG TAB PO SCH (08:19)
[2021-02-13] MEDS: Senokot S 8.6-50 MG TAB PO SCH ×2 (08:19→21:33)
[2021-02-13] MEDS: Polyethylene Glycol 3350 17 GM Packet PO SCH ×2 (08:19→21:33)
[2021-02-13] MEDS: Famotidine 20 MG TAB PO SCH ×2 (08:19→21:32)
[2021-02-13] MEDS: Digoxin 0.5 MG/2 ML AMP SLOW IVP SCH (08:32)
[2021-02-13] MEDS ORDERED: Metoprolol Tartrate 25 MG TAB PO SCH (13:45)
[2021-02-13] MEDS: Cyanocobalamin (Vitamin B-12) 1,000 MCG TAB PO SCH (21:33)
[2021-02-13] MEDS: Folic Acid 1 MG TAB PO SCH (21:33)
[2021-02-13] MEDS: Metoprolol Tartrate 25 MG TAB PO SCH (21:33)
[2021-02-14 04:39] LABS: INR-International Normal Ratio 3.1; Prothrombin Time 32.3 sec (12.0-14.7)
[2021-02-14 04:45] LABS: Anion Gap 11 mmol/L (10-20); BUN (Urea Nitrogen) 9 mg/dL (8.4-25.7); Calc. Creatinine Clearance 76 mL/min (70-130); Calcium 9.5 mg/dL (7.8-10.44); Carbon Dioxide 25 mmol/L (23-31); Chloride 103 mmol/L (98-107); Glucose 95 mg/dL (83-110); Potassium 3.1 mmol/L (3.5-5.1); Sodium 136 mmol/L (136-145)
[2021-02-14] MEDS ORDERED: Potassium Chloride 20 MEQ TAB PO SCH (06:45)
[2021-02-14] MEDS ORDERED: hydrALAZINE 25 MG TAB PO PRN (08:09)
[2021-02-14] MEDS ORDERED: hydrALAZINE 20 MG/ML VIAL SLOW IVP PRN (08:09)
[2021-02-14] MEDS: Senokot S 8.6-50 MG TAB PO SCH ×2 (08:49→22:07)
[2021-02-14] MEDS: Digoxin 0.125 MG TAB PO SCH (08:50)
[2021-02-14] MEDS: Metoprolol Tartrate 25 MG TAB PO SCH ×2 (08:50→22:07)
[2021-02-14] MEDS: Ondansetron PF 4 MG/2 ML Vial IVP PRN (08:50)
[2021-02-14] MEDS: Aspirin Chewable 81 MG TAB PO SCH (08:50)
[2021-02-14] MEDS: Famotidine 20 MG TAB PO SCH ×2 (08:50→22:07)
[2021-02-14] MEDS: Polyethylene Glycol 3350 17 GM Packet PO SCH ×2 (08:51→22:07)
[2021-02-14 14:24] VITALS: BMI 23.8
[2021-02-14] MEDS: Cinacalcet HCl 30 MG TAB PO SCH (16:33)
[2021-02-14] MEDS: Folic Acid 1 MG TAB PO SCH (22:06)
[2021-02-14] MEDS: Cyanocobalamin (Vitamin B-12) 1,000 MCG TAB PO SCH (22:06)
[2021-02-15 05:12] LABS: INR-International Normal Ratio 2.4; Prothrombin Time 26.8 sec (12.0-14.7)
[2021-02-15 05:24] LABS: Anion Gap 9 mmol/L (10-20); BUN (Urea Nitrogen) 11 mg/dL (8.4-25.7); Calc. Creatinine Clearance 75 mL/min (70-130); Calcium 9.2 mg/dL (7.8-10.44); Carbon Dioxide 24 mmol/L (23-31); Chloride 105 mmol/L (98-107); Glucose 88 mg/dL (83-110); Potassium 3.4 mmol/L (3.5-5.1); Sodium 135 mmol/L (136-145)
[2021-02-15] MEDS ORDERED: Potassium Chloride 20 MEQ TAB PO SCH (06:30)
[2021-02-15] MEDS ORDERED: Potassium Chloride 20 MEQ in Premix Bag 1 BAG IVPB SCH (08:00)
[2021-02-15] MEDS: Digoxin 0.125 MG TAB PO SCH (08:48)
[2021-02-15] MEDS: Metoprolol Tartrate 25 MG TAB PO SCH ×2 (08:48→20:43)
[2021-02-15] MEDS: Aspirin Chewable 81 MG TAB PO SCH (08:48)
[2021-02-15] MEDS: Cinacalcet HCl 30 MG TAB PO SCH ×2 (08:48→16:00)
[2021-02-15] MEDS: Famotidine 20 MG TAB PO SCH ×2 (08:48→20:43)
[2021-02-15] MEDS: Senokot S 8.6-50 MG TAB PO SCH ×2 (08:49→20:44)
[2021-02-15] MEDS: Polyethylene Glycol 3350 17 GM Packet PO SCH ×2 (08:49→20:44)
[2021-02-15] MEDS: Potassium Chloride 10 MEQ in Premix Bag 1 BAG IVPB SCH ×4 (09:47→17:55)
[2021-02-15] MEDS ORDERED: Warfarin Sodium 2 MG TAB PO SCH (17:00)
[2021-02-15] MEDS ORDERED: Warfarin Sodium 3 MG TAB PO SCH (17:00)
[2021-02-15] MEDS: Cyanocobalamin (Vitamin B-12) 1,000 MCG TAB PO SCH (20:43)
[2021-02-15] MEDS: Folic Acid 1 MG TAB PO SCH (20:44)
[2021-02-16 05:00] LABS: INR-International Normal Ratio 2.1
[2021-02-16 05:12] LABS: Anion Gap 10 mmol/L (10-20); BUN (Urea Nitrogen) 9 mg/dL (8.4-25.7); Calc. Creatinine Clearance 78 mL/min (70-130); Calcium 8.7 mg/dL (7.8-10.44); Carbon Dioxide 24 mmol/L (23-31); Chloride 103 mmol/L (98-107); Glucose 84 mg/dL (83-110); Potassium 3.5 mmol/L (3.5-5.1); Sodium 133 mmol/L (136-145)
[2021-02-16] MEDS ORDERED: Loperamide HCl 2 MG CAP PO PRN (07:44)
[2021-02-16] MEDS: Famotidine 20 MG TAB PO SCH (07:54)
[2021-02-16] MEDS: Aspirin Chewable 81 MG TAB PO SCH (07:54)
[2021-02-16] MEDS: Digoxin 0.125 MG TAB PO SCH (07:54)
[2021-02-16] MEDS: Metoprolol Tartrate 25 MG TAB PO SCH (07:54)
[2021-02-16] MEDS: Cinacalcet HCl 30 MG TAB PO SCH (07:54)
[2021-02-16] MEDS: Senokot S 8.6-50 MG TAB PO SCH (07:55)
[2021-02-16] MEDS: Polyethylene Glycol 3350 17 GM Packet PO SCH (07:55)
[2021-02-16] MEDS ORDERED: Potassium Chloride 20 MEQ TAB PO SCH (11:00)
[2021-02-16 11:10] VITALS: BP 118/75; TEMP 98.5
== END 2021-02-16 13:08 | DRG 871 ==
LOC: ERS 14:47 → 2NO 18:09
PROVIDERS: ADMIT Internal Medicine; ATTEND Internal Medicine
PROC: 30233L1 Transfusion of Nonautologous Fresh Plasma into Peripheral Vein, Percutaneous Approach (ICD-10-PCS; principal; 2021-02-08)
PROC: 30233K0 Transfusion of Autologous Frozen Plasma into Peripheral Vein, Percutaneous Approach (ICD-10-PCS; 2021-02-08)
DX: A41.9 Sepsis, unspecified organism (principal); G93.41 Metabolic encephalopathy; N17.9 Acute kidney failure, unspecified; I48.21 Permanent atrial fibrillation; E87.2 Acidosis; E87.1 Hypo-osmolality and hyponatremia; K56.7 Ileus, unspecified; Z20.822 Contact with and (suspected) exposure to COVID-19; E86.0 Dehydration; K56.41 Fecal impaction; I12.9 Hypertensive chronic kidney disease with stage 1 through stage 4 chronic kidney disease, or unspecified chronic kidney disease; N18.2 Chronic kidney disease, stage 2 (mild); E87.6 Hypokalemia; E83.39 Other disorders of phosphorus metabolism; R65.20 Severe sepsis without septic shock; D75.89 Other specified diseases of blood and blood-forming organs; R31.0 Gross hematuria; R29.6 Repeated falls; I73.9 Peripheral vascular disease, unspecified; E55.9 Vitamin D deficiency, unspecified; E21.0 Primary hyperparathyroidism; E87.8 Other disorders of electrolyte and fluid balance, not elsewhere classified; I49.5 Sick sinus syndrome; E53.8 Deficiency of other specified B group vitamins; Z79.01 Long term (current) use of anticoagulants; Z79.899 Other long term (current) drug therapy; Z95.0 Presence of cardiac pacemaker
CPT/HCPCS: 36415; 36430; 70450; 70492; 71045; 74018; 74177; 76536; 76770; 80048; 80053; 80162; 80202; 81001; 82306; 82310; 82550; 82553; 82570; 83605; 83690; 83735; 83880; 83970; 84100; 84145; 84300; 84443; 84484; 85025; 85610; 85730; 86850; 86900; 86901; 87040; 87324; 87449; 87635; 93005; 94760; 96365; 96366; 96367; 96376; J0360; J0692; J1160; J1364; J1940; J2060; J2250; J2405; J2543; J3010; J3370; J3475; J3480; J3489; J3490; J7050; P9059; Q9967; U0003; U0005

== ENCOUNTER 2021-02-19 20:40 | Inpatient (IN) | payer MEDICARE, OTHER ==
[2021-02-19 21:46] LABS: Bilirubin Negative (Negative); Blood, Urine Trace (Negative); Clarity Turbid (Clear); Glucose, Urine (Dipstick) Normal (Negative); Ketone, Urine Negative (Negative); Leukocyte 250 Leu/uL (Negative); Mucous/LPF Rare LPF (<2+); Nitrite Negative (Negative); Protein, Urine (Dipstick) 50 mg/dL (Neg-Trace); Renal Epithelial 0-3 HPF (None Seen); Specific Gravity, Urine 1.024 (1.002-1.036); Squamous Epithelial None Seen HPF (0-3); Urobilinogen Normal mg/dL (Less than 2); WBC/HPF 21-50 HPF (0-3); pH, Urine 5.5 (5.0-9.0)
[2021-02-19 21:51] LABS: Bacteria/HPF Rare-Few HPF (None Seen); RBC/HPF 0-3 HPF (0-3); Yeast-Budding 3+ HPF (None Seen)
[2021-02-19] MEDS ORDERED: Ondansetron PF 4 MG/2 ML Vial ONE (22:14)
[2021-02-19 22:20] LABS: Hemoglobin 16.5 g/dL (14.0-18.0); Mean Corpuscular HGB CONC 33.1 g/dL (32.0-36.0); Mean Corpuscular Hemoglobin 32.7 pg (27.0-31.0); Mean Corpuscular Volume 98.8 fL (78.0-98.0); Platelet Count 276 thou/uL (130-400); RBC Distribution Width 13.4 % (11.5-14.5); Red Blood Cell (RBC) Count 5.06 mill/uL (4.70-6.10); White Blood Cell (WBC) Count 17.6 thou/uL (4.8-10.8)
[2021-02-19 22:30] LABS: Prothrombin Time 22.7 sec (12.0-14.7)
[2021-02-19 22:39] LABS: ALT (SGPT) 23 U/L (8-55); AST (SGOT) 23 U/L (5-34); Albumin 3.2 g/dL (3.4-4.8); Alkaline Phosphatase 91 U/L (40-110); Anion Gap 14 mmol/L (10-20); BUN (Urea Nitrogen) 16 mg/dL (8.4-25.7); Bilirubin, Total 1.2 mg/dL (0.2-1.2); Calc. Creatinine Clearance 0 mL/min (70-130); Calcium 8.3 mg/dL (7.8-10.44); Carbon Dioxide 25 mmol/L (23-31); Chloride 103 mmol/L (98-107); Globulin 3.3 g/dL (2.4-3.5); Glucose 123 mg/dL (83-110); Magnesium 1.6 mg/dL (1.6-2.6); Potassium 3.4 mmol/L (3.5-5.1); Protein, Total 6.5 g/dL (5.8-8.1); Sodium 139 mmol/L (136-145)
[2021-02-19 22:40] LABS: Band 34 % (5-11); Lymphocytes 6 % (21-51); MDiff Complete? YES; Monocytes 2 % (0-10); Neutrophil 58 % (42-75); Platelet Morphology Comment Appears Adequate; RBC Morphology Normal
[2021-02-19 23:35] LABS: Digoxin 0.31 ng/mL (0.8-2.0)
[2021-02-19] MEDS ORDERED: Cefepime 1 GM VIAL ONE (23:57)
[2021-02-19] MEDS ORDERED: Magnesium 2 GM/50 ML BAG (IN WATER) ONE (23:57)
[2021-02-19] MEDS ORDERED: Pantoprazole 40 MG VIAL ONE ×2 (23:57→23:59)
[2021-02-20] MEDS ORDERED: Cefepime 1 GM VIAL ONE ×2 (00:41→07:50)
[2021-02-20] MEDS ORDERED: Potassium Chloride 40 MEQ in Sodium Chloride 0.9% 250 ML 250 ML IVPB SCH (02:00)
[2021-02-20] MEDS ORDERED: Ondansetron ODT 4 MG TAB SL PRN (03:45)
[2021-02-20] MEDS ORDERED: Acetaminophen 325 MG TAB PO PRN ×2 (03:45→05:38)
[2021-02-20] MEDS ORDERED: Ondansetron PF 4 MG/2 ML Vial IVP PRN ×2 (03:45→05:38)
[2021-02-20 06:40] LABS: #Eosinphils 0.2 thou/uL (0.0-0.7); #Monocytes 0.8 thou/uL (0.11-0.59); #Neutrophils 6.5 thou/uL (1.40-6.50); %Basophils 0.5 % (0.0-1.0); %Eosinophils 2.2 % (0.0-10.0); %Lymphocytes 11.9 % (21.0-51.0); %Monocytes 9.4 % (0.0-10.0); %Neutrophils 75.9 % (42.0-75.0); Hemoglobin 15.1 g/dL (14.0-18.0); Mean Corpuscular HGB CONC 32.8 g/dL (32.0-36.0); Mean Corpuscular Hemoglobin 32.2 pg (27.0-31.0); Mean Corpuscular Volume 98.3 fL (78.0-98.0); Mean Platelet Volume 8.1 fL (7.4-10.4); Platelet Count 239 thou/uL (130-400); RBC Distribution Width 13.3 % (11.5-14.5); Red Blood Cell (RBC) Count 4.69 mill/uL (4.70-6.10); White Blood Cell (WBC) Count 8.5 thou/uL (4.8-10.8)
[2021-02-20 06:53] LABS: Anion Gap 12 mmol/L (10-20); BUN (Urea Nitrogen) 19 mg/dL (8.4-25.7); Calc. Creatinine Clearance 72 mL/min (70-130); Calcium 7.7 mg/dL (7.8-10.44); Carbon Dioxide 22 mmol/L (23-31); Chloride 108 mmol/L (98-107); Glucose 101 mg/dL (83-110); Potassium 3.8 mmol/L (3.5-5.1); Sodium 138 mmol/L (136-145)
[2021-02-20] MEDS ORDERED: Metoprolol Tartrate 25 MG TAB ONE (07:50)
[2021-02-20] MEDS ORDERED: Pantoprazole 40 MG VIAL ONE (07:50)
[2021-02-20] MEDS ORDERED: Digoxin 0.125 MG TAB ONE (07:50)
[2021-02-20 07:59] LABS: SARS-CoV-2 NAA Rapid Test Not Detected (NotDetected)
[2021-02-20] MEDS: Cinacalcet HCl 30 MG TAB PO SCH ×2 (08:02→16:45)
[2021-02-20] MEDS: Cefepime 1 GM in Sodium Chloride 0.9% 100 ML IVPB SCH ×2 (08:29→20:52)
[2021-02-20] MEDS: Digoxin 0.125 MG TAB PO SCH (08:30)
[2021-02-20] MEDS: Metoprolol Tartrate 25 MG TAB PO SCH ×2 (08:30→21:06)
[2021-02-20] MEDS: Docusate 100 MG CAP PO SCH ×2 (08:30→21:06)
[2021-02-20] MEDS: Pantoprazole 40 MG VIAL IVP SCH ×2 (08:31→21:09)
[2021-02-20] MEDS: Vancomycin HCl 750 MG in Sodium Chloride 0.9% 250 ML 250 ML IVPB SCH ×2 (09:30→21:05)
[2021-02-20] MEDS ORDERED: Polyvinyl Alcohol 1.4%/Povidone 0.6% Opth Drops EA EYE PRN (13:16)
[2021-02-20 15:07] VITALS: BMI 24.4
[2021-02-20] MEDS ORDERED: Cinacalcet HCl 30 MG TAB PO SCH (17:00)
[2021-02-20] MEDS ORDERED: Folic Acid 1 MG TAB PO SCH (21:00)
[2021-02-20] MEDS ORDERED: Metoprolol Tartrate 25 MG TAB PO SCH (21:00)
[2021-02-20] MEDS: Cyanocobalamin (Vitamin B-12) 1,000 MCG TAB PO SCH (21:06)
[2021-02-20 22:15] LABS: Hemoglobin 14.9 g/dL (14.0-18.0)
[2021-02-21 05:22] LABS: #Eosinphils 0.8 thou/uL (0.0-0.7); #Lymphocytes 1.1 thou/uL (1.20-3.40); #Monocytes 0.9 thou/uL (0.11-0.59); #Neutrophils 5.1 thou/uL (1.40-6.50); %Basophils 0.4 % (0.0-1.0); %Eosinophils 10.4 % (0.0-10.0); %Lymphocytes 13.8 % (21.0-51.0); %Monocytes 11.5 % (0.0-10.0); Hemoglobin 14.5 g/dL (14.0-18.0); Mean Corpuscular HGB CONC 33.7 g/dL (32.0-36.0); Mean Corpuscular Hemoglobin 33.3 pg (27.0-31.0); Mean Corpuscular Volume 98.8 fL (78.0-98.0); Mean Platelet Volume 8.8 fL (7.4-10.4); Platelet Count 226 thou/uL (130-400); RBC Distribution Width 13.4 % (11.5-14.5); Red Blood Cell (RBC) Count 4.36 mill/uL (4.70-6.10); White Blood Cell (WBC) Count 7.9 thou/uL (4.8-10.8)
[2021-02-21 05:44] LABS: Digoxin 0.23 ng/mL (0.8-2.0)
[2021-02-21 05:47] LABS: Anion Gap 11 mmol/L (10-20); BUN (Urea Nitrogen) 20 mg/dL (8.4-25.7); Calc. Creatinine Clearance 77 mL/min (70-130); Calcium 7.6 mg/dL (7.8-10.44); Carbon Dioxide 24 mmol/L (23-31); Chloride 108 mmol/L (98-107); Glucose 73 mg/dL (83-110); Potassium 3.2 mmol/L (3.5-5.1); Sodium 140 mmol/L (136-145)
[2021-02-21] MEDS: Pantoprazole 40 MG VIAL IVP SCH ×2 (09:43→20:33)
[2021-02-21] MEDS: Digoxin 0.125 MG TAB PO SCH (09:43)
[2021-02-21] MEDS: Cinacalcet HCl 30 MG TAB PO SCH ×2 (09:43→17:26)
[2021-02-21] MEDS: Metoprolol Tartrate 25 MG TAB PO SCH ×2 (09:43→20:33)
[2021-02-21] MEDS: Cefepime 1 GM in Sodium Chloride 0.9% 100 ML IVPB SCH ×2 (09:43→20:33)
[2021-02-21] MEDS: Docusate 100 MG CAP PO SCH ×2 (09:43→20:33)
[2021-02-21] MEDS: Vancomycin HCl 750 MG in Sodium Chloride 0.9% 250 ML 250 ML IVPB SCH (11:23)
[2021-02-21] MEDS ORDERED: Nystatin Powder 15 GM BOT TOP PRN (16:04)
[2021-02-21] MEDS ORDERED: Warfarin Sodium 3 MG TAB PO SCH (17:00)
[2021-02-21] MEDS: Cyanocobalamin (Vitamin B-12) 1,000 MCG TAB PO SCH (20:33)
[2021-02-21 20:34] LABS: Vancomycin, Trough 9.8 ug/mL
[2021-02-21] MEDS ORDERED: Cinacalcet HCl 30 MG TAB PO SCH (21:00)
[2021-02-22 05:13] LABS: #Eosinphils 0.8 thou/uL (0.0-0.7); #Lymphocytes 1.3 thou/uL (1.20-3.40); #Neutrophils 5.7 thou/uL (1.40-6.50); %Basophils 0.4 % (0.0-1.0); %Eosinophils 9.4 % (0.0-10.0); %Lymphocytes 15.1 % (21.0-51.0); %Monocytes 10.7 % (0.0-10.0); %Neutrophils 64.4 % (42.0-75.0); Mean Corpuscular HGB CONC 32.1 g/dL (32.0-36.0); Mean Corpuscular Hemoglobin 31.7 pg (27.0-31.0); Mean Corpuscular Volume 98.7 fL (78.0-98.0); Mean Platelet Volume 8.3 fL (7.4-10.4); Platelet Count 239 thou/uL (130-400); RBC Distribution Width 13.3 % (11.5-14.5); Red Blood Cell (RBC) Count 4.41 mill/uL (4.70-6.10); White Blood Cell (WBC) Count 8.8 thou/uL (4.8-10.8)
[2021-02-22 05:31] LABS: Anion Gap 11 mmol/L (10-20); BUN (Urea Nitrogen) 15 mg/dL (8.4-25.7); Calc. Creatinine Clearance 85 mL/min (70-130); Calcium 7.5 mg/dL (7.8-10.44); Carbon Dioxide 23 mmol/L (23-31); Chloride 109 mmol/L (98-107); Glucose 83 mg/dL (83-110); Magnesium 1.9 mg/dL (1.6-2.6); Sodium 140 mmol/L (136-145)
[2021-02-22 05:38] LABS: Potassium 2.8 mmol/L (3.5-5.1)
[2021-02-22] MEDS ORDERED: Potassium Chloride 40 MEQ in Sodium Chloride 0.9% 250 ML 250 ML IVPB SCH (07:30)
[2021-02-22] MEDS: Cinacalcet HCl 30 MG TAB PO SCH ×2 (09:06→17:17)
[2021-02-22] MEDS: Digoxin 0.125 MG TAB PO SCH (09:06)
[2021-02-22] MEDS: Cefepime 1 GM in Sodium Chloride 0.9% 100 ML IVPB SCH (09:06)
[2021-02-22] MEDS: Docusate 100 MG CAP PO SCH ×2 (09:06→09:07)
[2021-02-22] MEDS: Nystatin Cream 15 GM TUBE TOP SCH (09:07)
[2021-02-22] MEDS: Metoprolol Tartrate 25 MG TAB PO SCH ×2 (09:07→20:34)
[2021-02-22] MEDS: Potassium Chloride 20 MEQ TAB PO SCH (09:07)
[2021-02-22] MEDS: Pantoprazole 40 MG VIAL IVP SCH ×2 (09:07→20:34)
[2021-02-22] MEDS: Folic Acid 1 MG TAB PO SCH (09:07)
[2021-02-22 11:51] LABS: Prothrombin Time 40.2 sec (12.0-14.7)
[2021-02-22] MEDS: Cyanocobalamin (Vitamin B-12) 1,000 MCG TAB PO SCH (20:34)
[2021-02-23 04:50] LABS: #Eosinphils 0.6 thou/uL (0.0-0.7); #Lymphocytes 1.3 thou/uL (1.20-3.40); #Monocytes 0.8 thou/uL (0.11-0.59); #Neutrophils 5.8 thou/uL (1.40-6.50); %Basophils 0.4 % (0.0-1.0); %Eosinophils 7.6 % (0.0-10.0); %Lymphocytes 14.9 % (21.0-51.0); %Monocytes 9.8 % (0.0-10.0); %Neutrophils 67.3 % (42.0-75.0); Hemoglobin 14.3 g/dL (14.0-18.0); Mean Corpuscular HGB CONC 32.9 g/dL (32.0-36.0); Mean Corpuscular Hemoglobin 32.3 pg (27.0-31.0); Mean Platelet Volume 7.9 fL (7.4-10.4); Platelet Count 231 thou/uL (130-400); RBC Distribution Width 13.3 % (11.5-14.5); Red Blood Cell (RBC) Count 4.44 mill/uL (4.70-6.10); White Blood Cell (WBC) Count 8.6 thou/uL (4.8-10.8)
[2021-02-23 05:32] LABS: Prothrombin Time 42.1 sec (12.0-14.7)
[2021-02-23 05:37] LABS: INR-International Normal Ratio 4.3
[2021-02-23 06:03] LABS: Anion Gap 9 mmol/L (10-20); BUN (Urea Nitrogen) 12 mg/dL (8.4-25.7); Calc. Creatinine Clearance 81 mL/min (70-130); Calcium 7.5 mg/dL (7.8-10.44); Carbon Dioxide 25 mmol/L (23-31); Chloride 110 mmol/L (98-107); Glucose 90 mg/dL (83-110); Magnesium 1.8 mg/dL (1.6-2.6); Potassium 3.2 mmol/L (3.5-5.1); Sodium 141 mmol/L (136-145)
[2021-02-23] MEDS: Nystatin Cream 15 GM TUBE TOP SCH (08:47)
[2021-02-23] MEDS: Folic Acid 1 MG TAB PO SCH (08:47)
[2021-02-23] MEDS: Metoprolol Tartrate 25 MG TAB PO SCH ×2 (08:47→20:47)
[2021-02-23] MEDS: Cinacalcet HCl 30 MG TAB PO SCH ×2 (08:47→17:29)
[2021-02-23] MEDS: Digoxin 0.125 MG TAB PO SCH (08:47)
[2021-02-23] MEDS: Docusate 100 MG CAP PO SCH (08:47)
[2021-02-23] MEDS: Pantoprazole 40 MG VIAL IVP SCH ×2 (08:48→20:46)
[2021-02-23] MEDS: Potassium Chloride 20 MEQ TAB PO SCH (08:48)
[2021-02-23] MEDS ORDERED: Warfarin Sodium 3 MG TAB PO SCH ×2 (17:00)
[2021-02-23] MEDS: Cyanocobalamin (Vitamin B-12) 1,000 MCG TAB PO SCH (20:46)
[2021-02-24 05:19] LABS: INR-International Normal Ratio 1.9; Prothrombin Time 22.1 sec (12.0-14.7)
[2021-02-24 05:27] LABS: Anion Gap 12 mmol/L (10-20); BUN (Urea Nitrogen) 8 mg/dL (8.4-25.7); Calc. Creatinine Clearance 92 mL/min (70-130); Calcium 7.2 mg/dL (7.8-10.44); Carbon Dioxide 22 mmol/L (23-31); Chloride 108 mmol/L (98-107); Glucose 90 mg/dL (83-110); Magnesium 1.5 mg/dL (1.6-2.6); Sodium 139 mmol/L (136-145)
[2021-02-24 05:32] LABS: Potassium 2.7 mmol/L (3.5-5.1)
[2021-02-24] MEDS ORDERED: Potassium Chloride 20 MEQ TAB PO SCH (06:45)
[2021-02-24] MEDS ORDERED: cefOXitin Sodium/Dextrose 2 GM/50 ML BAG ONE ×2 (08:40→08:52)
[2021-02-24] MEDS ORDERED: Bupivacaine 0.25% HCL 30 ML VIAL ONE (08:40)
[2021-02-24] MEDS ORDERED: Lidocaine 2% Jelly 5 ML TUBE ONE (08:40)
[2021-02-24] MEDS ORDERED: Lidocaine 1% w/Epinephrine 1:100K 20 ML VIAL ONE (08:40)
[2021-02-24] MEDS ORDERED: PHENYLEPHRINE-NS 100 MCG/ML 10 ML SYRINGE ONE (09:07)
[2021-02-24] MEDS ORDERED: PROPOFOL 200 MG/20 ML VIAL ONE (09:07)
[2021-02-24] MEDS ORDERED: Ondansetron HCl/PF 4 MG/2 ML Vial IVP PRN (09:19)
[2021-02-24] MEDS ORDERED: Polyethylene Glycol 3350 17 GM Packet PO SCH (09:45)
[2021-02-24] MEDS: Digoxin 0.125 MG TAB PO SCH (11:29)
[2021-02-24] MEDS: Cinacalcet HCl 30 MG TAB PO SCH ×2 (11:29→16:41)
[2021-02-24] MEDS: Docusate 100 MG CAP PO SCH (11:29)
[2021-02-24] MEDS: Folic Acid 1 MG TAB PO SCH (11:29)
[2021-02-24] MEDS: Metoprolol Tartrate 25 MG TAB PO SCH ×2 (11:29→20:42)
[2021-02-24] MEDS: Potassium Chloride 20 MEQ TAB PO SCH ×2 (11:30→20:42)
[2021-02-24] MEDS: Pantoprazole 40 MG VIAL IVP SCH ×2 (11:30→20:41)
[2021-02-24] MEDS: Nystatin Cream 15 GM TUBE TOP SCH (11:30)
[2021-02-24] MEDS ORDERED: Magnesium 2 GM/50 ML 2 GM in Premix Bag 1 BAG IVPB SCH (15:00)
[2021-02-24] MEDS: Cyanocobalamin (Vitamin B-12) 1,000 MCG TAB PO SCH (20:41)
[2021-02-25 05:01] LABS: INR-International Normal Ratio 1.9; Prothrombin Time 21.8 sec (12.0-14.7)
[2021-02-25 05:32] LABS: Anion Gap 12 mmol/L (10-20); BUN (Urea Nitrogen) 9 mg/dL (8.4-25.7); Calc. Creatinine Clearance 90 mL/min (70-130); Carbon Dioxide 22 mmol/L (23-31); Chloride 107 mmol/L (98-107); Glucose 93 mg/dL (83-110); Magnesium 1.7 mg/dL (1.6-2.6); Potassium 3.5 mmol/L (3.5-5.1); Sodium 137 mmol/L (136-145)
[2021-02-25] MEDS: Pantoprazole 40 MG VIAL IVP SCH (08:47)
[2021-02-25] MEDS: Digoxin 0.125 MG TAB PO SCH (08:47)
[2021-02-25] MEDS: Polyethylene Glycol 3350 17 GM Packet PO SCH (08:47)
[2021-02-25] MEDS: Cinacalcet HCl 30 MG TAB PO SCH ×2 (08:47→18:08)
[2021-02-25] MEDS: Docusate 100 MG CAP PO SCH (08:47)
[2021-02-25] MEDS: Metoprolol Tartrate 25 MG TAB PO SCH ×2 (08:47→21:08)
[2021-02-25] MEDS: Potassium Chloride 20 MEQ TAB PO SCH ×2 (08:47→21:08)
[2021-02-25] MEDS: Nystatin Cream 15 GM TUBE TOP SCH (08:48)
[2021-02-25] MEDS: Folic Acid 1 MG TAB PO SCH (08:48)
[2021-02-25] MEDS: Cyanocobalamin (Vitamin B-12) 1,000 MCG TAB PO SCH (21:08)
[2021-02-26 05:09] LABS: INR-International Normal Ratio 1.4; Prothrombin Time 17.5 sec (12.0-14.7)
[2021-02-26] MEDS: Folic Acid 1 MG TAB PO SCH (08:26)
[2021-02-26] MEDS: Digoxin 0.125 MG TAB PO SCH (08:26)
[2021-02-26] MEDS: Cinacalcet HCl 30 MG TAB PO SCH ×2 (08:26→15:29)
[2021-02-26] MEDS: Docusate 100 MG CAP PO SCH (08:26)
[2021-02-26] MEDS: Potassium Chloride 20 MEQ TAB PO SCH ×2 (08:26→20:07)
[2021-02-26] MEDS: Metoprolol Tartrate 25 MG TAB PO SCH ×2 (08:26→20:07)
[2021-02-26] MEDS: Polyethylene Glycol 3350 17 GM Packet PO SCH (08:26)
[2021-02-26] MEDS: Cyanocobalamin (Vitamin B-12) 1,000 MCG TAB PO SCH (20:07)
[2021-02-27 04:46] LABS: INR-International Normal Ratio 1.3; Prothrombin Time 16.4 sec (12.0-14.7)
[2021-02-27] MEDS: Digoxin 0.125 MG TAB PO SCH (08:54)
[2021-02-27] MEDS: Cinacalcet HCl 30 MG TAB PO SCH ×2 (08:54→16:16)
[2021-02-27] MEDS: Metoprolol Tartrate 25 MG TAB PO SCH ×2 (08:55→21:43)
[2021-02-27] MEDS: Potassium Chloride 20 MEQ TAB PO SCH ×2 (08:55→21:44)
[2021-02-27] MEDS: Docusate 100 MG CAP PO SCH (08:55)
[2021-02-27] MEDS: Polyethylene Glycol 3350 17 GM Packet PO SCH (08:55)
[2021-02-27] MEDS: Folic Acid 1 MG TAB PO SCH (08:55)
[2021-02-27 12:58] LABS: Anion Gap 12 mmol/L (10-20); BUN (Urea Nitrogen) 10 mg/dL (8.4-25.7); Calc. Creatinine Clearance 88 mL/min (70-130); Calcium 7.2 mg/dL (7.8-10.44); Carbon Dioxide 19 mmol/L (23-31); Chloride 110 mmol/L (98-107); Glucose 109 mg/dL (83-110); Magnesium 1.5 mg/dL (1.6-2.6); Potassium 3.9 mmol/L (3.5-5.1); Sodium 137 mmol/L (136-145)
[2021-02-27] MEDS ORDERED: Magnesium 2 GM/50 ML 2 GM in Premix Bag 1 BAG IVPB SCH (15:15)
[2021-02-27 16:54] LABS: Phosphorus 1.7 mg/dL (2.3-4.7)
[2021-02-27] MEDS ORDERED: Sodium Phosphate 30 MMOL in Sodium Chloride 0.9% 250 ML 250 ML IVPB SCH (17:15)
[2021-02-27] MEDS: Cyanocobalamin (Vitamin B-12) 1,000 MCG TAB PO SCH (21:43)
[2021-02-28 05:50] LABS: INR-International Normal Ratio 1.3; Prothrombin Time 16.2 sec (12.0-14.7)
[2021-02-28] MEDS: Metoprolol Tartrate 25 MG TAB PO SCH ×2 (09:07→20:47)
[2021-02-28] MEDS: Digoxin 0.125 MG TAB PO SCH (09:07)
[2021-02-28] MEDS: Folic Acid 1 MG TAB PO SCH (09:07)
[2021-02-28] MEDS: Potassium Chloride 20 MEQ TAB PO SCH ×2 (09:08→20:47)
[2021-02-28] MEDS: Docusate 100 MG CAP PO SCH (09:08)
[2021-02-28] MEDS: Cinacalcet HCl 30 MG TAB PO SCH ×2 (09:18→18:20)
[2021-02-28] MEDS: Polyethylene Glycol 3350 17 GM Packet PO SCH (09:18)
[2021-02-28 13:05] LABS: Anion Gap 12 mmol/L (10-20); BUN (Urea Nitrogen) 13 mg/dL (8.4-25.7); Calc. Creatinine Clearance 79 mL/min (70-130); Calcium 7.5 mg/dL (7.8-10.44); Carbon Dioxide 21 mmol/L (23-31); Chloride 108 mmol/L (98-107); Glucose 109 mg/dL (83-110); Magnesium 1.7 mg/dL (1.6-2.6); Phosphorus 2.5 mg/dL (2.3-4.7); Potassium 3.3 mmol/L (3.5-5.1); Sodium 138 mmol/L (136-145)
[2021-02-28] MEDS ORDERED: Potassium Chloride 20 MEQ TAB PO SCH (13:45)
[2021-02-28 20:31] VITALS: BP 135/78; TEMP 98.3
[2021-02-28] MEDS: Cyanocobalamin (Vitamin B-12) 1,000 MCG TAB PO SCH (20:47)
== END 2021-02-28 21:08 | DRG 854 ==
LOC: ERS 20:40 → ERHOLD 23:52 → 2NO 02-20 13:39
PROVIDERS: ADMIT Internal Medicine; ATTEND Internal Medicine
PROC: 0D7Q7ZZ Dilation of Anus, Via Natural or Artificial Opening (ICD-10-PCS; 2021-02-20)
PROC: 0D9P30Z Drainage of Rectum with Drainage Device, Percutaneous Approach (ICD-10-PCS; 2021-02-22)
PROC: 0D8R0ZZ Division of Anal Sphincter, Open Approach (ICD-10-PCS; principal; 2021-02-24)
PROC: 0DBR0ZZ Excision of Anal Sphincter, Open Approach (ICD-10-PCS; 2021-02-24)
DX: A41.9 Sepsis, unspecified organism (principal); N39.0 Urinary tract infection, site not specified; K56.7 Ileus, unspecified; I48.20 Chronic atrial fibrillation, unspecified; N17.9 Acute kidney failure, unspecified; Z20.822 Contact with and (suspected) exposure to COVID-19; I10 Essential (primary) hypertension; E03.9 Hypothyroidism, unspecified; E21.0 Primary hyperparathyroidism; K56.41 Fecal impaction; E83.52 Hypercalcemia; R13.10 Dysphagia, unspecified; E87.6 Hypokalemia; R79.1 Abnormal coagulation profile; K59.4 Anal spasm; K60.2 Anal fissure, unspecified; D35.1 Benign neoplasm of parathyroid gland; B35.6 Tinea cruris; Z79.01 Long term (current) use of anticoagulants; Z79.899 Other long term (current) drug therapy; Z95.0 Presence of cardiac pacemaker
CPT/HCPCS: 36415; 36416; 36430; 71045; 74018; 74177; 80048; 80053; 80162; 80202; 81003; 81015; 83605; 83735; 84100; 84145; 84484; 85025; 85610; 86850; 86900; 86901; 87040; 87086; 87149; 93306; 96365; 96366; 96368; 96375; C9113; J0692; J0694; J2405; J2704; J3370; J3475; J3480; J3490; J7050; P9059; Q9967; S0020; U0002